=== PATIENT | female | born 1955 | race Caucasian/White ===

== ENCOUNTER 2020-03-04 07:41 | Outpatient (CLI) | payer MEDICARE, SELFPAY ==
[2020-03-06 02:14] LABS: COVID-19 RT-PCR Result NEGATIVE (Negative)
== END 2020-03-04 08:01 ==
PROVIDERS: PCP Internal Medicine; Visit Provider Podiatrist
DX: Z11.59 Encounter for screening for other viral diseases (principal); Z01.818 Encounter for other preprocedural examination
CPT/HCPCS: U0003

== ENCOUNTER 2020-03-07 10:57 | Inpatient (IN) | payer MEDICARE, SELFPAY ==
--- NOTE | 2020-03-05 14:11 | CMPROGNOTE_ITS ---
- If Service Date Differs Date of service: 03/05/20 Time of Service: 14:11 Care Management Progress Note S/O: Jeanne will be admitted status post surgery on the 07 of March. CM spoke to [facility] at [facility] who has sent referral to [facility] in [place]. According to Sierra Tran the Coordinator patient has been accepted to facility and they will have a bed for her status post surgery after her qualified hospital stay. P: Jeanne will be discharged to [facility] when she is discharged from the hospital. Transportation to be determined.
[2020-03-07 06:27] VITALS: BP 129/83; PULSE 78; RESP 16; TEMP 36.8; O2SAT 97
[2020-03-07] MEDS: Lactated Ringers 1,000 ML 80 ML IV (07:06)
--- NOTE | 2020-03-07 07:18 | HPE_ITS ---
Date of service: 03/07/20 Time of Service: 07:19 History of Present Illness History of Present Illness Chief Complaint: left foot derangement with chronic pain [facility] Medical History Abnormal gait Angioedema Pt. denies this Carpal tunnel syndrome Cervical spondylosis with radiculopathy Closed traumatic dislocation of metatarsal joint Complex regional pain syndrome Depressive disorder GERD (gastroesophageal reflux disease) Hyperlipemia Hypertension Hypokalemia Hypothyroidism Impetigo Tremor Surgical History H/O sinus surgery History of back surgery Hx of colonoscopy Social History Smoking/Tobacco Use Status: Never Alcohol Intake: current Alcohol Intake frequency: a few times a month Alcohol type: wine Drug use: Never Substance use type: does not use Do you feel safe at home: Yes Additional Social history: lives alone Meds Home Medications and Allergies Home Medications Medication Instructions Recorded Confirmed Type albuterol sulfate 2 puff INHALATION Q4H PRN 03/05/20 03/05/20 History amlodipine 10 mg PO DAILY 03/05/20 03/07/20 History buspirone 7.5 mg PO BID 03/05/20 03/05/20 History buspirone 15 mg PO TID PRN 03/05/20 03/05/20 History citalopram 10 mg PO DAILY 03/05/20 03/07/20 History cyclobenzaprine 5 mg PO TID 03/05/20 03/07/20 History diazepam 5 mg PO TID PRN 03/05/20 03/07/20 History duloxetine 60 mg PO BID 03/05/20 03/07/20 History gemfibrozil 600 mg PO BID 03/05/20 03/07/20 History hydrochlorothiazide 25 mg PO DAILY 03/05/20 03/07/20 History levothyroxine 25 mcg PO DAILY 03/05/20 03/07/20 History levothyroxine 88 mcg PO DAILY 03/05/20 03/07/20 History lisinopril 5 mg PO DAILY 03/05/20 03/07/20 History omeprazole 40 mg PO DAILY 03/05/20 03/07/20 History pregabalin 200 mg PO BID 03/05/20 03/07/20 History simvastatin 20 mg PO DAILY 03/05/20 03/07/20 History Allergies Allergy/AdvReac Type Severity Reaction Status Date / Time lamotrigine [From Lamictal] Allergy Intermediate Itching Unverified 03/07/20 06:19 amoxicillin [From Augmentin] Allergy Mild Skin Rash Unverified 03/07/20 06:19 clavulanic acid Allergy Mild Skin Rash Unverified 03/07/20 06:19 [From Augmentin] moxifloxacin [From Avelox] Allergy Mild Hives Unverified 03/07/20 06:19 Exam Narrative Exam Narrative: 64-year-old female with chronic pain associated with gross deformity of the left foot. Pain is experienced with weightbearing and shoe gear. Head is normocephalic Eyes PERRLA Hearing is adequate Uvula was midline Heart had regular rate and rhythm without gallops rubs or murmurs noted Lung tate were clear Abdomen is soft and nontender bowel sounds appreciated x 4 Peripheral pulses are palpable at the ankles graded -2/4 bilaterally. Capillary refills on the 3 seconds to all toes. No edema. Calves are soft to palpation. Muscle groups is 5 out of 5 bilaterally Medical exam is remarkable for gross deformity of the left foot with senile HAV deformity, hammertoe deformities 2 through 5 with subluxations and dislocations through the metatarsal phalangeal joints. Plantar prominence of the metatarsal heads are noted. There is generalized pain to even gentle palpation of the forefoot structures. Neurologically she appears to be grossly intact. Impression: Senile left HAV deformity Dislocation at the metatarsophalangeal joints 2 through 5 with hammertoe deformities Plan: Jeanne is being brought to the OR for salvage procedure of the left foot. We discussed a Montoya Chano type procedure emphasizing the physical alterations that will occur in the foot including shortening of the foot itself, floating of the toes. Goal of surgery is to produce a plantigrade foot with less pain with weightbearing. Risk and complications including pain, scarring, infection, reactivation of CRPS, persistent foot pain and deformity of the digits discussed. No promises made final outcome of surgery. Informed consents been obtained. Results Last Vital Signs Temp 36.8 C 03/07/20 06:27 Pulse 78 03/07/20 06:27 Resp 16 03/07/20 06:27 BP 129/83 03/07/20 06:27 Pulse Ox 97 03/07/20 06:27 COVID-19 Screening Have you,or household,traveled outside [place] in last 14 days?: No Had IN PERSON contact w/suspected or confirmed C-19 person: No
[2020-03-07] MEDS: CLINDAMYCIN 600 MG/50 ML BAG 100 MG IVPB (07:37)
[2020-03-07] MEDS: Lidocaine 1% Multi-Dose 50 ML VIAL (07:55)
[2020-03-07] MEDS: Bupivacaine 0.5% Pres-Free 30 ML VIAL (07:55)
[2020-03-07] MEDS: Dexamethasone 4 MG/ML VIAL (09:44)
--- NOTE | 2020-03-07 10:15 | W.PM.DSUDISC ---
Discharge Plan Disposition Patient Disposition: [facility] INPATIENT Condition: Good Discharge Details Reason For Visit: reconstruction left foot Attending Provider: Yo Osborn Primary Care Provider: Demetrio Vizcaino Home Meds and New Rx's Prescriptions: Continued citalopram 10 mg tablet 10 mg PO DAILY RF: 0 omeprazole 40 mg capsule,delayed release(DR/EC) 40 mg PO DAILY RF: 0 levothyroxine 25 mcg tablet 25 mcg PO DAILY RF: 0 levothyroxine 88 mcg tablet 88 mcg PO DAILY RF: 0 amlodipine 10 mg tablet 10 mg PO DAILY RF: 0 gemfibrozil 600 mg tablet 600 mg PO BID RF: 0 simvastatin 20 mg tablet 20 mg PO DAILY RF: 0 buspirone 7.5 mg tablet 7.5 mg PO BID RF: 0 lisinopril 5 mg tablet 5 mg PO DAILY RF: 0 hydrochlorothiazide 25 mg tablet 25 mg PO DAILY RF: 0 albuterol sulfate 90 mcg/actuation HFA aerosol inhaler 2 puff INHALATION Q4H PRNRF: 0 diazepam 5 mg tablet 5 mg PO TID PRNRF: 0 buspirone 15 mg tablet 15 mg PO TID PRNRF: 0 cyclobenzaprine 5 mg tablet 5 mg PO TID RF: 0 duloxetine 60 mg capsule,delayed release(DR/EC) 60 mg PO BID RF: 0 pregabalin 200 mg capsule 200 mg PO BID RF: 0 Discharge Instructions Activity:: Elevate Remove Dressings/Wound Care:: Do Not Remove Shower/Bathe:: Cover Diet:: Normal Diet Discharge Orders Discharge Orders: Discharge Order (Routine); Ordered 03/07/20 Ordered By: Yo Osborn DS: Diagnosis Discharge Diagnosis (1) Hallux valgus (acquired), left foot: Status: Acute
--- NOTE | 2020-03-07 10:18 | ROE_ITS ---
Date of service: 03/07/20 Time of Service: 10:18 Operative Note Operative Note DATE OF PROCEDURE: 03/07/20 PRE-OP DIAGNOSIS: Senile left HAV deformity, dislocations metatarsal phalangeal joints 2, 3, 4 subluxation fifth MPJ POST-OP DIAGNOSIS: same PROCEDURE: Montoya Chano type procedure with external K wire fixations left foot ANESTHESIA: GETA ESTIMATED BLOOD LOSS: 3 PATHOLOGY: none sent TOURNIQUET TIME: 122 COMPLICATIONS: None Patient was transported to: floor Implants: Steinmann pin through the great toe, Sade wires through digits 2 3 and 4 all to the left foot Indications: 64-year-old female who sustained a traumatic event to the left foot with multiple fractures subsequent gross deformity progressive in nature now making it impossible to wear shoes bear weight and ambulate. She is opting for surgical intervention in an effort to reshape the foot to allow her easier shoe gear utilization and a plantigrade foot for pain-free weightbearing. She does understand potential risk and complications pertaining to pain, scarring, infection, shortening of the foot, chronic swelling of the lesser toes, CRPS, progressive deformation over time with recurrent bunion and hammertoe deformities potentially requiring revisional procedures. Informed consents been obtained no promises made to the final outcome of surgery. Procedure Description: Jeanne was brought to the operative suite placed in the supine position with the left foot was prepped and draped in the usual sterile podiatric fashion. Timeout was performed. Anesthesia was obtained through general IV anesthesia and a local left ankle block utilizing 30 cc 50-50 mixture 1% lidocaine plain 0.5% Marcaine plain. Attention was directed to the left foot which was exsanguinated and a well-padded ankle tourniquet inflated 250 mmHg incisions were placed dorsally over the first MPJs parallel and medial to the EHL tendon, over the second intermetatarsal space and over the fourth intermetatarsal space. The incision over the second intermetatarsal space was deepened with a #15 scalpel extensive scarring was appreciated tissue planes were difficult to recreate nevertheless dissection was carried down to the second and third metatarsal phalangeal joints. Dislocation at this level was appreciated with the proximal phalanges laterally displaced from the joint. The joint capsule over the second MPJ was incised a McGlamry metatarsal elevator was inserted and the second metatarsal head delivered into the wound. Significant osteoarthritic degenerated cartilaginous findings were appreciated the second metatarsal head was resected with power equipment at its anatomic neck all rough and bony edges were rasped smooth. The same procedure was then performed at the third MPJ with the third metatarsal head being significantly deranged it too was resected at its anatomic neck. All rough and bony edges were rasped smooth. The bases of the proximal phalanges 2 and 3 were then resected with power instrumentation. The contracture of these toes which was noted preoperatively relaxed upon this maneuver and the PIPJ's were flexible. Attention was now directed to the fourth intermetatarsal space where sharp and blunt dissection was performed carrying down to the fourth and fifth metatarsal phalangeal joints. Once again anatomic planes were significantly abnormal due to previous surgical intervention and trauma. Hemostasis was acquired with electrocautery. Dissection was carried down to the fourth metatarsal phalangeal joint which was incised dorsally McGlamry metatarsal elevator was then inserted down through the joint and the fourth metatarsal delivered into the wound. Significant degenerative change of the articular surface noted. With power instrumentation the head and base were resected with all rough rough and bony edges being rasped smooth. Attention was directed laterally where the fifth MPJ was now incised McGlamry metatarsal elevator inserted and the fifth metatarsal delivered into the wound this was significantly degenerated as well. The head fifth metatarsal head was resected with angulation proximal lateral to distal medial all rough and bony edges were then rare smooth. At this juncture toes 234 and 5 with sitting in a relaxed position. Attention was now directed to the first MPJ where that incision was deepened in controlled depth fashion hemostasis being acquired with electrocautery. Dissection was carried down to the joint capsule the joint capsule was incised via a inverted L capsulotomy. The head of the first metatarsal and base of the proximal phalanx was then resected with power instrumentation. When the head was resected it was angled so it was proximal medial to distal lateral. All rough and bony edges were rasped smooth as needed. Hemostasis acquired with electrocautery. Good correction of the deformity was appreciated in the first MPJ hallux was relaxed. Stabilization?fixation was obtained using a Steinmann pin through the great toe going back into the first metatarsal keeping the hallux rectus. 0.062 K wires were then utilized to stabilize toes 2 3 and 4 going across the MPJs into the metatarsals. Good position of all toes was appreciated. Copious irrigation with normal saline was performed of all incisions. The deep layers were r epaired with simple interrupted suture 3-0 Vicryl joint capsule was repaired with medial capsulorrhaphy being utilized to the first MPJ region and closed with 3-0 Vicryl. Subcutaneous layer was repaired with 4-0 Vicryl. Skin was coapted with a combination of continuous interlocking suture of 4-0 nylon in simple interrupted suture as needed. 4 mg dexamethasone phosphate was infused primarily around the first MPJ incision. Betadine ointment applied to the K wires and Steinmann pin Xeroform to the incisions gauze fluff compression dressings were applied. Tourniquet was released at 122 with vascularity returning immediately to all toes. Sharp and sponge counts were correct x2. Jeanne left the OR with vital signs stable vascular status intact she will remain in-house for pain control with anticipated placement short-term care while she recuperates
--- NOTE | 2020-03-07 12:34 | HPE_ITS ---
Date of service: 03/07/20 Time of Service: 12:34 Assessment and Plan Assessment and plan (1) Hallux valgus (acquired), left foot: Start date: 03/07/20 Start time: 12:46 Status: Acute Assessment and plan: Surgery with Dr. Irena Madden type procedure with external K wire fixations left foot today. Incision in drsg. c/d/i with surgical shoe in place. Dr. Osborn will follow Pain management with percocet and morphine prn. PT/OT, she will likely need rehab from discharge. (2) GERD (gastroesophageal reflux disease): Start date: 03/07/20 Start time: 12:53 Status: Chronic Assessment and plan: Continue omeprazole Qualifiers: Esophagitis presence: without esophagitis Qualified Code(s): K21.9 - Gastro-esophageal reflux disease without esophagitis (3) Hypothyroidism: Start date: 03/07/20 Start time: 12:53 Status: Chronic Assessment and plan: Continue levothyroxine Qualifiers: Hypothyroidism type: unspecified Qualified Code(s): E03.9 - Hypothyroidism, unspecified (4) Hypertension: Start date: 03/07/20 Start time: 12:53 Status: Chronic Assessment and plan: Will monitor and continue amlodipine, HTcz, SELENA Qualifiers: Hypertension type: essential hypertension Qualified Code(s): I10 - Essential (primary) hypertension (5) Hyperlipemia: Start date: 03/07/20 Start time: 12:54 Status: Acute Assessment and plan: Continue simvastatin Qualifiers: Hyperlipidemia type: unspecified Qualified Code(s): E78.5 - Hyperlipidemia, unspecified (6) Discharge planning issues: Start date: 03/07/20 Start time: 12:55 Status: Acute Assessment and plan: Will likely need Rehab on discharge. CM to make arrangements (7) DVT prophylaxis: Start date: 03/07/20 Start time: 13:00 Status: Acute Assessment and plan: Will start enoxaparin tomorrow. Above case discussed with Dr. Gary who is in agreement. History of Present Illness History of Present Illness Chief Complaint: Ambulatory dysfunction, Pain management Narrative: 64 y.o with PMH of HLD, HTN, hypothyroid admitted from Dr. Farias service following surgical procedure Jan Madden with external K wire fixations left foot. We have been asked to admit for follow up of medical problems, pain management and rehab placement. Ms. Walden is having pain 8 out of 10. She is unable to care for her self at home and unable to move around. Morphine IV for severe pain with percocet for moderate pain. Foot is wrapped wit h surgical shoe in place. PT/OT with rehab when available. Review of Systems All systems reviewed & are unremarkable except as noted in HPI and below PFSH Medical History (Updated 03/07/20 @ 12:55 by Morena Rolle NP) Abnormal gait Angioedema Pt. denies this Carpal tunnel syndrome Cervical spondylosis with radiculopathy Closed traumatic dislocation of metatarsal joint Complex regional pain syndrome Depressive disorder GERD (gastroesophageal reflux disease) Hyperlipemia Hypertension Hypokalemia Hypothyroidism Impetigo Tremor Surgical History H/O sinus surgery History of back surgery Hx of colonoscopy Social History Smoking/Tobacco Use Status: Never Alcohol Intake: current Alcohol Intake frequency: a few times a month Alcohol type: wine Drug use: Never Substance use type: does not use Do you feel safe at home: Yes Additional Social history: lives alone Meds Home Medications and Allergies Home Medications Medication Instructions Recorded Confirmed Type albuterol sulfate 2 puff INHALATION Q4H PRN 03/05/20 03/05/20 History amlodipine 10 mg PO DAILY 03/05/20 03/07/20 History buspirone 7.5 mg PO BID 03/05/20 03/05/20 History buspirone 15 mg PO TID PRN 03/05/20 03/05/20 History citalopram 10 mg PO DAILY 03/05/20 03/07/20 History cyclobenzaprine 5 mg PO TID PRN PRN 03/05/20 03/07/20 History diazepam 5 mg PO BID 03/05/20 03/07/20 History duloxetine 60 mg PO BID 03/05/20 03/07/20 History gemfibrozil 600 mg PO BID 03/05/20 03/07/20 History hydrochlorothiazide 25 mg PO DAILY 03/05/20 03/07/20 History levothyroxine 25 mcg PO DAILY 03/05/20 03/07/20 History levothyroxine 88 mcg PO DAILY 03/05/20 03/07/20 History lisinopril 5 mg PO DAILY 03/05/20 03/07/20 History omeprazole 40 mg PO DAILY 03/05/20 03/07/20 History pregabalin 200 mg PO BID 03/05/20 03/07/20 History simvastatin 20 mg PO DAILY 03/05/20 03/07/20 History Allergies Allergy/AdvReac Type Severity Reaction Status Date / Time lamotrigine [From Lamictal] Allergy Intermediate Itching Unverified 03/07/20 06:19 amoxicillin [From Augmentin] Allergy Mild Skin Rash Unverified 03/07/20 06:19 clavulanic acid Allergy Mild Skin Rash Unverified 03/07/20 06:19 [From Augmentin] moxifloxacin [From Avelox] Allergy Mild Hives Unverified 03/07/20 06:19 Exam Const General: cooperative, healthy appearing, comfortable and no acute distress Nutritional Appearance: well nourished and overweight Orientation: alert, awake and oriented x3 HENMT Head: normal to inspection, normocephalic and atraumatic Face and sinus: normal facial exam Mouth: oral mucosae normal Eyes General: appearance normal, both eyes and all related structures Sclera: sclerae normal Cornea: corneas normal Pupils: PERRL EOM: EOM intact bilaterally Neck Neck: normal visual inspection, full ROM and no lymphadenopathy Lymphatic: no lymphadenopathy noted Chest Chest: normal inspection of the chest Resp Effort & Inspection: normal respiratory effort and able to speak in complete sentences Auscultation: clear to auscultation bilaterally Cardio Jugular venous pressure: no JVD Rate: regular rate Rhythm: regular rhythm Heart Sounds: S1 normal and S2 normal GI Inspection: normal to inspection Palpation: soft and no hepatosplenomegaly Auscultation: normal bowel sounds General: deferred Back/Spine/Pelvis Back: no CVA tenderness Skin General skin exam: no rashes or lesions noted Wounds: wounds noted (unable to visualize wound, in drsg, c/d/i with surgical shoe in place) Neuro General: patient alert, patient awake and patient oriented x3 Extrem General: normal to inspection and full ROM Left lower extremity: foot (surgical drsg) Details: no edema Results Last Vital Signs Temp 36.8 C 10/23/20 06:27 Pulse 78 03/07/20 06:27 Resp 16 03/07/20 06:27 BP 129/83 03/07/20 06:27 Pulse Ox 97 03/07/20 06:27 COVID-19 Screening Have you,or household,traveled outside [place] in last 14 days?: No Had IN PERSON contact w/suspected or confirmed C-19 person: No
[2020-03-07 13:19] VITALS: BP 152/95; PULSE 78; RESP 15; TEMP 37.1; O2SAT 95
[2020-03-07] MEDS: oxyCODONE 5 mg/Acetaminophen 325 mg TAB 1 TAB PO ×2 (13:38→20:04)
--- NOTE | 2020-03-07 15:56 | IN_ITS ---
Date of service: 03/07/20 Time of Service: 15:56 PT Notes Visit Reasons: AMBULATORY DYSFUNCTION Physical Therapy Inpatient Initial Evaluation Date: 03/07/2020 Referring Doctor: Morena Rolle NP PT Orders: PT CONSULT: Eval/Treat. Precautions: Fall. Standard. Post-op shoe on the right side and regular sneaker on the left side when out of bed. Weight bearing as tolerated on the R LE. Patient Profile/Admitting Diagnosis: Jeanne is a 64-year-old female with senile left hallux abducto valgus deformity, 2nd/3rd/4th MTP dislocation, and 5th MTP subluxation status post Montoya Chano type procedure with external K wire fixation of the left foot on postoperative day 0. PMHX: Medical History (Updated 03/07/20 @ 12:55 by Morena Rolle NP) Abnormal gait Angioedema Pt. denies this Carpal tunnel syndrome Cervical spondylosis with radiculopathy Closed traumatic dislocation of metatarsal joint Complex regional pain syndrome Depressive disorder GERD (gastroesophageal reflux disease) Hyperlipemia Hypertension Hypokalemia Hypothyroidism Impetigo Tremor Surgical History H/O sinus surgery History of back surgery Hx of colonoscopy Social History/Home Situation: Lives alone in an apartment with a ramp to enter. Has 3 dogs. 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 Independent with all ADLs using a SPC. Has had several falls in the past 12 months. Niece and friend help her out with grocery shopping and medical transportation. Equipment Owned/DME: Wheelchair, FWW, SPC Subjective: Reports 8-9/10 pain in the R ankle and foot with weight bearing. States that she has had tremors for a long time now and has fallen several times in the past year. Objective: General Observation: Post op shoe on R. IV in L UE. Intentional tremors to B UE. Mental Status: Alert and oriented x 4 Pain: 8-9/10 pain in R ankle and foot ROM: Right Upper Extremity: Shoulder Flexion WFL. Shoulder abduction WFL. Elbow flexion WFL. Wrist flexion WFL. Opening and closing of hand WFL. Left Upper Extremity: Shoulder Flexion WFL. Shoulder abduction WFL. Elbow flexion WFL. Wrist flexion WFL. Opening and closing of hand WFL. Right Lower Extremity: Hip flexion WFL. Hip abduction WFL. Knee flexion WFL. Ankle dorsiflexion WFL. Ankle plantarflexion WFL. Left Lower Extremity: Hip flexion WFL. Hip abduction WFL. Knee flexion WFL. Ankle dorsiflexion WFL. Ankle plantarflexion WFL. Strength: Right Upper Extremity: Shoulder flexors 4-/5. Shoulder abductors 4-/5. Elbow flexors 4-/5. Elbow extensors 4-/5. Cotton Picking Machine Operator strong. Left Upper Extremity: Shoulder flexors 4-/5. Shoulder abductors 4-/5. Elbow flexors 4-/5. Elbow extensors 4-/5. Cotton Picking Machine Operator strong. Right Lower Extremity: Hip flexors 3+/5. Hip abductors 3+/5. Knee flexors 4-/5. Knee extensors 3+/5. Ankle dorsiflexors 3+/5. Ankle plantarflexors 3+/5. Left Lower Extremity:Hip flexors 3+/5. Hip abductors 3+/5. Knee flexors 4-/5. Knee extensors 3+/5. Ankle dorsiflexors 3+/5. Ankle plantarflexors 3+/5. Sensation: Intact as to pain and pressure on bilateral lower extremities. Bed Mobility/Transfers: Rolling SBA Supine to sit SBA with HOB at 30 degrees Sit to supine SBA Sit to stand CGA Stand to sit CGA Bed to chair CGA Gait: 40 feet with FWW requiring CGA with WBAT on L LE and sneaker on R. 8-9/10 with WB. No heelstrike on L Jeanne requires a walker for increased stability. Decreased beka. Balance: Static Sitting: Normal Dynamic Sitting: Normal fair Static Standing: Dynamic Standing: Fair Special Tests: Mobility Limitations Standardized Measure [facility] AM-PAC 6 clicks Basic Mobility Inpatient Short Form: Raw Score: 18 CMS Score: 47% deficit Informed Consent/Education: Patient instructed in purpose of PT consult and plan of care. THERA ACT: Patient was instructed on safe strategies during transfers and ambulation using FWW with emphasis given on using a sneaker on the non-operated side to equalize leg length and minimize pain level during mobility ADL performance. A padding made of comprifoam placed inside an elastic netting gauzed was placed over dorsum of forefoot and toes to minimize pressure and reduce pain. Assessment: Jeanne demonstrates functional mobility decline requiring the use of a front wheeled walker for all mobility ADL performance, generalized weakness, intentional tremor, difficulty with walking, and impairment in balance due to admitting diagnoses and postoperative status. Jeanne is a 64-year-old female with senile left hallux abducto valgus deformity, 2nd/3rd/4th MTP dislocation, and 5th MTP subluxation status post Montoya Chano type procedure with external K wire fixation of the left foot on postoperative day 0. She will require skilled services in order to mitigate underlying impairments and functional deficits listed below. Without PT services patient is at risk for further functional mobility decline, increased fall risk, and inability to return home alone. Patient presents with clinical signs and symptoms consistent with current/admitting diagnoses that have resulted to mobility limitations, gait instability, generalized weakness, and impairment of motor control as demonst rated by the following impairment level findings: 1. Decreased strength to right ankle major muscle groups 2. Impaired sitting/standing balance 3. Impaired activity tolerance 4. Limitation of joint range of motion in right ankle 5. Chronic intention tremors Impairments are contributing to the following functional limitations: 1. Increased dependence with transfers 2. Inability to safely ambulate without assistive device and physical assistance 3. Increase completion time for mobility ADL performance 4. Increased fall risk 5. Inability to negotiate steps alone safely Patient is assessed as a 38761 moderate complexity based on the following: History: 64-year-old female [id number] moderate with impairment level findings, functional limitations, and past medical history as indicated above Examination: Demonstrable impairment in strength, balance, and mobility level with underlying impairments and functional limitations as documented above Presentation:Evolving Decision Makin moderate complexity Goals: Goals X1 week 1. Supine-Sit independent 2. Sit-Supine independent 3. Sit-Stand independent 4. Stand-Sit independent 5. Bed-Chair independent 6. Chair-Bed independent 7. Independent gait on level surface with use of least restrictive device for at least 300 feet without report of pain nor dyspnea 8. Independent with home exercise program 9. Good static and dynamic standing balance/tolerance Plan of Care/Treatment Plan: 1-2x/day, 7 days/week x 1 week. Plan of care has been reviewed with the ENVELOPE SEALER providing the service under Physical Therapy direction. Initiate Physical Therapy intervention for strengthening, bed mobility, transfers, gait, stairs, balance training, use of assistive device. DISCHARGE RECOMMENDATIONS: Patient will benefit from prison facility placement for continued skilled physical therapy services in order to progress mobility level, strength, and balance in preparation for a safe discharge to home. TREATMENT CODE/TIME: 45641 x 20 minutes, 82694 x 24 minutes beginning at 15:56 PM. Thank you for the opportunity to participate in the care of this patient. Karon Srinivasan PT, DPT, CLT [facility] [place], [place]
[2020-03-07] MEDS: DULoxetine 30 MG CAP 60 MG PO (20:03)
[2020-03-07] MEDS: Pregabalin 100 MG CAP 200 MG PO (20:04)
[2020-03-07] MEDS: Simvastatin 20 MG TAB PO (20:04)
[2020-03-07 23:05] VITALS: BP 168/98; PULSE 82; RESP 18; TEMP 36.1; O2SAT 96
[2020-03-07] MEDS: MORPHine 2 MG/ML SYR IVP (23:53)
[2020-03-07] MEDS: Normal Saline Flush 10 ML SYR IVP (23:53)
[2020-03-08] MEDS: oxyCODONE 5 mg/Acetaminophen 325 mg TAB 1 TAB PO ×6 (02:57→21:58)
[2020-03-08] MEDS: MORPHine 2 MG/ML SYR IVP (05:13)
[2020-03-08] MEDS: Levothyroxine 25 MCG TAB PO (05:13)
[2020-03-08] MEDS: Levothyroxine 88 MCG TAB PO (05:13)
[2020-03-08] MEDS: Normal Saline Flush 10 ML SYR IVP ×2 (05:14→07:52)
[2020-03-08 07:31] LABS: Abs Immature Grans 0.03 10^3/uL (0.0-0.06); Absolute Basophil Count 0.02 10^3/uL (0.0-0.2); Absolute Eosinophil Count 0.04 10^3/uL (0.0-0.7); Absolute Monocyte Count 1.11 10^3/uL (0.1-0.8); Absolute Neutrophil Count 8.96 10^3/uL (1.2-6.7); Basophils % 0.2; Eosinophils % 0.3; HCT 34.3 % (36.0-46.0); HGB 11.6 g/dL (11.2-15.7); Immature Grans % 0.3; Lymphocytes % 13.6; MCH 28.9 pg (27.0-33.0); MCHC 33.8 % (32.0-36.0); MCV 85.3 fL (80-95); MPV 10.7 fL (8.0-11.0); Monocytes % 9.4; Neutrophils % 76.2; Nucleated RBC 0 %; Platelet Count 262 10^3/uL (130-400); RBC 4.02 10^6/uL (3.93-5.22); RDW 13.4 % (11.7-14.6); RDW-SD 41.8 fL; WBC 11.76 10^3/uL (4.4-10.8)
[2020-03-08 07:37] LABS: Anion Gap 10.7 mmol/L (3-11); BUN 19 mg/dL (7-18); CO2 24.3 mmol/L (21.0-32.0); CREATININE 0.72 mg/dL (0.55-1.02); Calcium 9.2 mg/dL (8.5-10.1); Chloride 99 mmol/L (98-107); Glucose 108 mg/dL (74-106); Potassium 3.2 mmol/L (3.5-5.1); Sodium 134 mmol/L (136-145)
[2020-03-08 07:45] VITALS: BP 159/105; PULSE 84; RESP 14; TEMP 36.4; O2SAT 98
[2020-03-08] MEDS: DULoxetine 30 MG CAP 60 MG PO ×2 (07:50→19:55)
[2020-03-08] MEDS: Lisinopril 5 MG TAB PO (07:51)
[2020-03-08] MEDS: Omeprazole 20 MG CAPCR 40 MG PO (07:51)
[2020-03-08] MEDS: Pregabalin 100 MG CAP 200 MG PO ×2 (07:51→19:55)
[2020-03-08] MEDS: Omega-3 Fatty Acids 1000 MG CAP 3000 MG PO (07:51)
[2020-03-08] MEDS: amLODIPine 10 MG TAB PO (07:52)
[2020-03-08] MEDS: hydroCHLOROthiazide 25 MG TAB PO (07:52)
[2020-03-08] MEDS: Enoxaparin 40 MG/0.4 ML SYR SC (09:48)
[2020-03-08] MEDS: Potassium Chloride 20 MEQ TABCR 40 MEQ PO (09:49)
[2020-03-08] MEDS: POTASSIUM CHLORIDE 10 MEQ/100 ML BAG 100 MEQ IVPB ×2 (09:49→10:56)
--- NOTE | 2020-03-08 10:31 | W.PM.PROGNOT ---
Date of Service Date of service: 03/08/20 Time of Service: 10:31 Subjective Subjective Interval history since last seen: Jeanne is seen at bedside. She had some intermittent pain overnight which is being well controlled with opiates. She is resting comfortably at the moment. Exam Narrative Exam Narrative: Dressings were reinforced overnight by the nursing staff. Dressings were removed and some bloody drainage was appreciated. No active bleeding currently noted. The foot has moderate edema as would be expected but the incisions are clean and dry, calf soft to palpation. She has good capillary return on all toes. The foot is warm to the touch. Impression: 24 hours status post Montoya Chano type procedure on the left foot Plan: Povidone iodine was applied to the incisions and K wires. Gauze fluff, Kerlix rolls and flex net, Rafa wrap reapplied. She may weight-bear in the surgical shoe as tolerated but I do encourage her to keep the foot elevated when not ambulating. I believe she will be transferred on Tuesday after recuperation. I would like to see her in the office postop day 10 or 11 for dressing change and suture removal. I discussed the case with the hospitalist. Objective Last Vital Signs Temp 36.1 C L 03/07/20 23:05 Pulse 82 03/07/20 23:05 Resp 18 03/07/20 23:05 BP 168/98 H 03/07/20 23:05 Pulse Ox 96 03/07/20 23:05 Laboratory Results - last 24 hr 03/08/20 03/08/20 07:08 07:08 WBC 11.76 H RBC 4.02 Hgb 11.6 Hct 34.3 L MCV 85.3 MCH 28.9 MCHC 33.8 RDW 13.4 Plt Count 262 MPV 10.7 Immature Gran % 0.3 Neutrophils % 76.2 Lymphocytes % 13.6 Monocytes % 9.4 Eosinophils % 0.3 Basophils % 0.2 Nucleated RBC % 0 Absolute Neutrophils 8.96 H Absolute Lymphocytes 1.60 Absolute Monocytes 1.11 H Absolute Eosinophils 0.04 Absolute Basophils 0.02 Sodium 134 L Potassium 3.2 L Chloride 99 Carbon Dioxide 24.3 Anion Gap 10.7 BUN 19 H Creatinine 0.72 Estimated GFR/1.73 m2 >= 60.00 Glucose 108 H Calcium 9.2
--- NOTE | 2020-03-08 11:06 | W.PM.PROGNOT ---
Date of Service Date of service: 03/08/20 Time of Service: 11:06 Assessment and Plan Assessment and plan (1) Hallux valgus (acquired), left foot: Start date: 03/08/20 Start time: 11:32 Status: Acute Assessment and plan: Surgery POD 1, with Dr. Irena Montoya Chano type procedure with external K wire fixations left foot today. Incision drsg. c/d/i with surgical shoe in place. Dr. Osborn will follow changed dressing today Pain management with percocet and morphine prn. PT/OT, she been accepte by [facility]. (2) GERD (gastroesophageal reflux disease): Start date: 03/08/20 Start time: 11:34 Status: Chronic Assessment and plan: Continue omeprazole Qualifiers: Esophagitis presence: without esophagitis Qualified Code(s): K21.9 - Gastro-esophageal reflux disease without esophagitis (3) Hypothyroidism: Start date: 03/08/20 Start time: 11:34 Status: Chronic Assessment and plan: Continue levothyroxine Qualifiers: Hypothyroidism type: unspecified Qualified Code(s): E03.9 - Hypothyroidism, unspecified (4) Hypertension: Start date: 03/08/20 Start time: 11:38 Status: Chronic Assessment and plan: Will monitor and continue amlodipine, HTcz, SELENA Qualifiers: Hypertension type: essential hypertension Qualified Code(s): I10 - Essential (primary) hypertension (5) Hyperlipemia: Start date: 03/08/20 Start time: 11:38 Status: Acute Assessment and plan: Continue simvastatin Qualifiers: Hyperlipidemia type: unspecified Qualified Code(s): E78.5 - Hyperlipidemia, unspecified (6) Discharge planning issues: Start date: 03/08/20 Start time: 11:38 Status: Acute Assessment and plan: Will need Rehab on discharge. CM to make arrangements (7) DVT prophylaxis: Start date: 03/08/20 Start time: 11:38 Status: Acute Assessment and plan: Will start enoxaparin tomorrow. Above case discussed with Dr. Gary who is in agreement. Subjective Subjective Patient reports: still having pain Interval history since last seen: POD [address] Osborn, c/o pain. Will schedule po pain medication, add ibuprofen and IV for breakthrough. Drsg intact, changed by surgeon today. Otherwise no complaints. Exam Const General: cooperative, healthy appearing, comfortable and no acute distress Nutritional Appearance: well nourished and overweight Orientation: alert, awake and oriented x3 HENMT Head: normal to inspection, normocephalic and atraumatic Face and sinus: normal facial exam Mouth: oral mucosae normal Eyes General: appearance normal, both eyes and all related structures Sclera: sclerae normal Cornea: corneas normal Pupils: PERRL EOM: EOM intact bilaterally Neck Neck: normal visual inspection, full ROM and no lymphadenopathy Lymphatic: no lymphadenopathy noted Chest Chest: normal inspection of the chest Resp Effort & Inspection: normal respiratory effort and able to speak in complete sentences Auscultation: clear to auscultation bilaterally Cardio Jugular venous pressure: no JVD Rate: regular rate Rhythm: regular rhythm Heart Sounds: S1 normal and S2 normal GI Inspection: normal to inspection Palpation: soft and no hepatosplenomegaly Auscultation: normal bowel sounds General: deferred Back/Spine/Pelvis Back: no CVA tenderness Skin General skin exam: no rashes or lesions noted Wounds: wounds noted (unable to visualize wound, in drsg, c/d/i with surgical shoe in place) Neuro General: patient alert, patient awake and patient oriented x3 Extrem General: normal to inspection and full ROM Left lower extremity: foot (surgical drsg) Details: no edema Objective Last Vital Signs Temp 36.1 C L 03/07/20 23:05 Pulse 82 03/07/20 23:05 Resp 18 03/07/20 23:05 BP 168/98 H 03/07/20 23:05 Pulse Ox 96 03/07/20 23:05 Laboratory Results - last 24 hr 03/08/20 03/08/20 07:08 07:08 WBC 11.76 H RBC 4.02 Hgb 11.6 Hct 34.3 L MCV 85.3 MCH 28.9 MCHC 33.8 RDW 13.4 Plt Count 262 MPV 10.7 Immature Gran % 0.3 Neutrophils % 76.2 Lymphocytes % 13.6 Monocytes % 9.4 Eosinophils % 0.3 Basophils % 0.2 Nucleated RBC % 0 Absolute Neutrophils 8.96 H Absolute Lymphocytes 1.60 Absolute Monocytes 1.11 H Absolute Eosinophils 0.04 Absolute Basophils 0.02 Sodium 134 L Potassium 3.2 L Chloride 99 Carbon Dioxide 24.3 Anion Gap 10.7 BUN 19 H Creatinine 0.72 Estimated GFR/1.73 m2 >= 60.00 Glucose 108 H Calcium 9.2
--- NOTE | 2020-03-08 11:22 | PT.INTREAT ---
PT Notes Visit Reasons: AMBULATORY DYSFUNCTION Inpatient Physical Therapy Treatment Note [facility] Date: 03/08/20 PRECAUTIONS:WBAT L LE Supine-sit: CGA Sit-supine: [] Sit-stand: CGA Stand-sit: CGA GAIT Assistive Device: FWW Weight bearing: WBAT L LE Assist: CGA Distance: 65ft ASSESSMENT: Pt tolerated today's session well with her ambulation and was able to ambulate better as she went farther along. She was tired after walking and did not complete any exercises due to that. PLAN: Cont as per PT POC TREATMENT CODE/TIME: 10:20-10:45 FABIAN (25)
[2020-03-08 12:00] VITALS: BP 119/86; PULSE 47; RESP 16; TEMP 36.3; O2SAT 96
--- NOTE | 2020-03-08 12:05 | PHA.REVIEW ---
Pharmacy Admission Review - Admission Clinical Review (Last Updated 03/07/20 @ 12:45 by Morena Rolle NP) DVT prophylaxis (Acute) Discharge planning issues (Acute) Hyperlipemia (Acute) Hallux valgus (acquired), left foot (Acute) lamotrigine [From Lamictal] Allergy (Intermediate, Unverified 03/07/20 06:19) Itching amoxicillin [From Augmentin] Allergy (Mild, Unverified 03/07/20 06:19) Skin Rash clavulanic acid [From Augmentin] Allergy (Mild, Unverified 03/07/20 06:19) Skin Rash moxifloxacin [From Avelox] Allergy (Mild, Unverified 03/07/20 06:19) Hives Height 5 ft 7 in Weight 83.1 kg - Renal Dosing Renal Dosing: BUN 19 mg/dL (7-18) H 03/08/20 07:08 Creatinine 0.72 mg/dL (0.55-1.02) 03/08/20 07:08 Medications needing adjustments: Reviewed (CRCL ~71ML/MIN) - Anticoagulation Anticoagulation: Hgb 11.6 g/dL (11.2-15.7) 03/08/20 07:08 Hct 34.3 % (36.0-46.0) L 03/08/20 07:08 Plt Count 262 10^3/uL (130-400) 03/08/20 07:08 Creatinine 0.72 mg/dL (0.55-1.02) 03/08/20 07:08 DVT Prohphylaxis: Reviewed Medications: Enoxaparin Therapeutic Anticoagulation: N/A - Opiate Usage Scheduled Bowel Reg ordered if on Opiates?: No (BM yesterday) - Relevant Labs Sodium 134 mmol/L (136-145) L 03/08/20 07:08 Potassium 3.2 mmol/L (3.5-5.1) L 03/08/20 07:08 Chloride 99 mmol/L (98-107) 03/08/20 07:08 - DM Control DM Control: Glucose 108 mg/dL (74-106) H 03/08/20 07:08 Insulin Dosing: N/A - BP Control If elevated: Reviewed - Home Meds Home Med List reviewed: Reviewed (No gemfibrozil ordered just simvastatin and fish oil, no citalopram) - Current meds Current Medication Order Review: Reviewed
[2020-03-08] MEDS: Ibuprofen 800 MG TAB PO ×2 (14:19→19:56)
[2020-03-08 15:50] VITALS: BP 115/52; PULSE 87; RESP 18; TEMP 35.9; O2SAT 96
--- NOTE | 2020-03-08 17:25 | PDOC.CMIN ---
- If Service Date Differs Date of service: 03/08/20 Time of Service: 17:25 Care Management Initial Assess REASON FOR HOSPITALIZATION:: Ambulatory Dysfunction PAST MEDICAL HISTORY/PAST SURGICAL HISTORY:: Medical History. Abnormal gait. Angioedema. Pt. denies this. Carpal tunnel syndrome. Cervical spondylosis with radiculopathy. Closed traumatic dislocation of metatarsal joint. Complex regional pain syndrome. Depressive disorder. GERD (gastroesophageal reflux disease). Hyperlipemia. Hypertension. Hypokalemia. Hypothyroidism. Impetigo. Tremor. Surgical History. H/O sinus surgery. History of back surgery. Hx of colonoscopy PREVIOUS FUNCTIONAL STATUS/SOCIAL/FAMILY SUPPORTS:: Jeanne lives in [place] alone. Her recently. She has three large dogs that she speaks fondly of. She has some relatives and friends that live nearby and support her when she is in need. She is independent with ADL's at baseline. CURRENT FUNCTIONAL STATUS:: Jeanne was sitting up in bed when CM met with her. She stated that she was just able to 'wash up', which has made her feel much better. She stated that her plan is to discharge to [facility] post surgically. CM stated that transportation would be arranged. CM will continue to follow. ADVANCE DIRECTIVES:: On file, Billy Walden listed as agent. Connie Walden listed as alternative agent. Has patient been provided with info about the portal/API?: No Did the patient sign up for the portal?: No CODE STATUS:: Full Code INSURANCE COVERAGE / FINANCIAL ISSUES:: MCR/ [employer] CURRENT HOME/COMMUNITY SERVICES/EQUIPMENT:: No current services. Jeanne owns a FWW, SPC and a wheelchair. PRIMARY CARE PHYSICIAN:: Demetrio Vizcaino POTENTIAL DISCHARGE NEEDS:: Transportation coordination, SNF placement (previously arranged) PATIENT/FAMILY EDUCATION NEEDS:: Review discharge instructions regarding activity levels and medications, discussion of self care needs and goals of care. ANTICIPATED BARRIERS TO DISCHARGE:: None identified at this time. TRANSPORTATION:: To be determined. PLAN:: Jeanne's PCP office has previously coordinated SNF placement for Jeanne at [facility] in [place], which is close to Jeanne's home. CM will coordinate transportation once Jeanne is stable for discharge. CM will continue to follow.
[2020-03-08] MEDS: Simvastatin 20 MG TAB PO (19:55)
[2020-03-08 23:00] VITALS: BP 135/84; PULSE 74; RESP 17; TEMP 36.5; O2SAT 95
[2020-03-09] MEDS: oxyCODONE 5 mg/Acetaminophen 325 mg TAB 1 TAB PO ×6 (02:31→22:07)
[2020-03-09] MEDS: Levothyroxine 88 MCG TAB PO (05:47)
[2020-03-09] MEDS: Levothyroxine 25 MCG TAB PO (05:47)
[2020-03-09 07:34] VITALS: BP 113/84; PULSE 80; RESP 18; TEMP 35.7; O2SAT 96
[2020-03-09] MEDS: Omega-3 Fatty Acids 1000 MG CAP 3000 MG PO (07:47)
[2020-03-09] MEDS: hydroCHLOROthiazide 25 MG TAB PO (07:47)
[2020-03-09] MEDS: Ibuprofen 800 MG TAB PO ×3 (07:47→19:52)
[2020-03-09] MEDS: DULoxetine 30 MG CAP 60 MG PO ×2 (07:48→19:51)
[2020-03-09] MEDS: Pregabalin 100 MG CAP 200 MG PO ×3 (07:48→19:51)
[2020-03-09] MEDS: Lisinopril 5 MG TAB PO (07:48)
[2020-03-09] MEDS: Omeprazole 20 MG CAPCR 40 MG PO (07:48)
[2020-03-09] MEDS: amLODIPine 10 MG TAB PO (07:48)
[2020-03-09] MEDS: Normal Saline Flush 10 ML SYR IVP (07:48)
[2020-03-09 09:17] LABS: Anion Gap 14.2 mmol/L (3-11); BUN 27 mg/dL (7-18); CO2 20.8 mmol/L (21.0-32.0); CREATININE 1.13 mg/dL (0.55-1.02); Calcium 9.1 mg/dL (8.5-10.1); Chloride 96 mmol/L (98-107); Estimated GFR 48.79 (mL/min/1.73m2); Glucose 114 mg/dL (74-106); Potassium 3.6 mmol/L (3.5-5.1); Sodium 131 mmol/L (136-145)
[2020-03-09] MEDS: Enoxaparin 40 MG/0.4 ML SYR SC (10:14)
[2020-03-09] MEDS: Citalopram 10 MG TAB PO (10:14)
--- NOTE | 2020-03-09 11:01 | W.PM.PROGNOT ---
Date of Service Date of service: 03/09/20 Time of Service: 11:01 Assessment and Plan Assessment and plan (1) Hallux valgus (acquired), left foot: Start date: 03/09/20 Start time: 11:06 Status: Acute Assessment and plan: Surgery POD 2, with Dr. Irena Madden type procedure with external K wire fixations left foot today. Incision drsg. c/d/i with surgical shoe in place. Dr. Osborn wants to see patient in 10-11 days post op Pain management with percocet a PT/OT, she been accepted by [facility]. (2) GERD (gastroesophageal reflux disease): Start date: 03/09/20 Start time: 11:07 Status: Chronic Assessment and plan: Continue omeprazole Qualifiers: Esophagitis presence: without esophagitis Qualified Code(s): K21.9 - Gastro-esophageal reflux disease without esophagitis (3) Hypothyroidism: Start date: 03/09/20 Start time: 11:07 Status: Chronic Assessment and plan: Continue levothyroxine Qualifiers: Hypothyroidism type: unspecified Qualified Code(s): E03.9 - Hypothyroidism, unspecified (4) Hypertension: Start date: 03/09/20 Start time: 11:08 Status: Chronic Assessment and plan: Will monitor and continue amlodipine, HTcz, SELENA Qualifiers: Hypertension type: essential hypertension Qualified Code(s): I10 - Essential (primary) hypertension (5) Hyperlipemia: Start date: 03/09/20 Start time: 11:08 Status: Acute Assessment and plan: Continue simvastatin Qualifiers: Hyperlipidemia type: unspecified Qualified Code(s): E78.5 - Hyperlipidemia, unspecified (6) Discharge planning issues: Start date: 03/09/20 Start time: 11:08 Status: Acute Assessment and plan: Will need Rehab on discharge. CM to make arrangements (7) DVT prophylaxis: Start date: 03/09/20 Start time: 11:08 Status: Acute Assessment and plan: On enoxaparin Above case discussed with Dr. Gary who is in agreement. Subjective Subjective Interval history since last seen: Doing well. Pain controlled. Sitting up in chair with foot elevated. She denies CP, SOB, N/V/D Exam Const General: cooperative, healthy appearing, comfortable and no acute distress Nutritional Appearance: well nourished and overweight Orientation: alert, awake and oriented x3 HENMT Head: normal to inspection, normocephalic and atraumatic Face and sinus: normal facial exam Mouth: oral mucosae normal Eyes General: appearance normal, both eyes and all related structures Sclera: sclerae normal Cornea: corneas normal Pupils: PERRL EOM: EOM intact bilaterally Neck Neck: normal visual inspection, full ROM and no lymphadenopathy Lymphatic: no lymphadenopathy noted Chest Chest: normal inspection of the chest Resp Effort & Inspection: normal respiratory effort and able to speak in complete sentences Auscultation: clear to auscultation bilaterally Cardio Jugular venous pressure: no JVD Rate: regular rate Rhythm: regular rhythm Heart Sounds: S1 normal and S2 normal GI Inspection: normal to inspection Palpation: soft and no hepatosplenomegaly Auscultation: normal bowel sounds General: deferred Back/Spine/Pelvis Back: no CVA tenderness Skin General skin exam: no rashes or lesions noted Wounds: wounds noted (unable to visualize wound, in drsg, c/d/i with surgical shoe in place) Neuro General: patient alert, patient awake and patient oriented x3 Extrem General: normal to inspection and full ROM Left lower extremity: foot (surgical drsg) Details: no edema Objective Last Vital Signs Temp 35.7 C L 03/09/20 07:34 Pulse 80 03/09/20 07:34 Resp 18 03/09/20 07:34 BP 113/84 03/09/20 07:34 Pulse Ox 96 03/09/20 07:34 Laboratory Results - last 24 hr 03/09/20 08:40 Sodium 131 L Potassium 3.6 Chloride 96 L Carbon Dioxide 20.8 L Anion Gap 14.2 H BUN 27 H Creatinine 1.13 H Estimated GFR/1.73 m2 48.79 Glucose 114 H Calcium 9.1
--- NOTE | 2020-03-09 11:03 | PT.INTREAT ---
PT Notes Visit Reasons: AMBULATORY DYSFUNCTION Inpatient Physical Therapy Treatment Note [facility] Date: 03/09/20 PRECAUTIONS: WBAT L LE SUBJECTIVE: Pt reports that she wants to get better and is willing to work hard. OBJECTIVE: Stand-sit: CGA/SBA GAIT Assistive Device: FWW Weight bearing: WBAT L LE Assist: CGA/SBA Distance: 100ft THEREX: Pt completed LE strengthening ther ex as per flow sheet. ASSESSMENT: Pt tolerated today's session well. Pt is very willing and wants to get stronger. Pt was fatigued today just from standing to get washed up this morning before I had seen her but still did very well. PLAN: Cont as per PT POC. TREATMENT CODE/TIME: 9:30-9:50 ( 20) TA
[2020-03-09 13:30] LABS: COVID-19 RT-PCR UVMMC Result Negative (Negative)
--- NOTE | 2020-03-09 14:00 | PDOC.CMPRO ---
- If Service Date Differs Date of service: 03/09/20 Time of Service: 14:00 Care Management Progress Note S/O: Jeanne was sitting in her chair, talking on the phone when CM attempted to meet with her. Per report, her Covid test was returned with a negative result, in preparation for her placement at [facility] tomorrow. CM will coordinate transportation with [facility] in the morning. CM will continue to follow. A: Jeanne is a 64 year old female admitted to [facility] on 03/07/20 with ambulatory dysfunction. P: Jeanne's PCP office has previously coordinated SNF placement for Jeanne at [facility] in [place], which is close to Jeanne's home. CM will coordinate transportation once Jeanne is stable for discharge. She will follow up with Dr. Arguelles in about a week post discharge. CM will confirm with [facility] that she will be able to transport to this appointment. CM will continue to follow.
[2020-03-09 15:30] VITALS: BP 109/71; PULSE 91; RESP 20; TEMP 35.9; O2SAT 94
[2020-03-09] MEDS: Simvastatin 20 MG TAB PO (19:52)
[2020-03-09 23:30] VITALS: BP 118/81; PULSE 78; RESP 19; TEMP 35.9; O2SAT 94
[2020-03-10] MEDS: oxyCODONE 5 mg/Acetaminophen 325 mg TAB 1 TAB PO ×4 (02:39→13:31)
[2020-03-10] MEDS: Levothyroxine 88 MCG TAB PO (05:49)
[2020-03-10] MEDS: Levothyroxine 25 MCG TAB PO (05:49)
[2020-03-10 08:00] VITALS: BP 91/60; PULSE 94; RESP 19; TEMP 36.8; O2SAT 93
[2020-03-10] MEDS: Omeprazole 20 MG CAPCR 40 MG PO (08:00)
[2020-03-10] MEDS: DULoxetine 30 MG CAP 60 MG PO (08:01)
[2020-03-10] MEDS: Omega-3 Fatty Acids 1000 MG CAP 3000 MG PO (08:01)
[2020-03-10] MEDS: Pregabalin 100 MG CAP 200 MG PO ×2 (08:01→13:31)
[2020-03-10] MEDS: Citalopram 10 MG TAB PO (08:01)
[2020-03-10] MEDS: Ibuprofen 800 MG TAB PO ×2 (08:01→13:31)
[2020-03-10] MEDS: Enoxaparin 40 MG/0.4 ML SYR SC (09:35)
[2020-03-10 10:26] VITALS: BP 104/67; BP 120/80
--- NOTE | 2020-03-10 11:32 | PDOC.CMDIS ---
LACE Index Scoring Tool - Questions: Length of Stay (in days): 3 Acuity (Admit via E.D.?): No E.D. Visits: 0 - Answers: Total Score: 3 Risk of Readmission: Low Risk Care Management Discharge Reason for Hospitalization: Ambulatory Dysfunction Discharge Plan: Joya will discharge to [facility] in [place], which is close to Joya home. CM coordinated transportation with [facility] via private vehicle, faxed DC summary and completed necessary paperwork. Patient/Family Education Needs: Review discharge instructions, discuss Ask Me Three. Services Needed at Discharge: Penitentiary Facility ([facility]), Transportation ([facility] private vehicle )
--- NOTE | 2020-03-10 11:56 | DSE_ITS ---
Documented by User: Morena Rolle NP 03/10/20 12:34 Date of service: 03/10/20 Time of Service: 12:07 DS: Diagnosis Discharge Diagnosis (1) Hallux valgus (acquired), left foot: Start date: 03/10/20 Start time: 12:07 Status: Acute Asessment and Plan: POD [address] Osborn Montoya Chano type procedure with external K wire fixations left foot today. Incision drsg. c/d/i with surgical shoe in place. Dr. Osobrn wants to see patient in 10-11 days post op TuesdayMar 18. Will have CM set up transportion Pain management with percocet a PT/OT, she been accepted by [facility]. (2) GERD (gastroesophageal reflux disease): Start date: 03/10/20 Start time: 12:15 Status: Chronic Asessment and Plan: continue omeprazole (3) Hypothyroidism: Start date: 03/10/20 Start time: 12:15 Status: Chronic Asessment and Plan: continue levothyroxine (4) Hypertension: Start date: 03/10/20 Start time: 12:15 Status: Chronic Asessment and Plan: COntinue amlodpine, HTCZ, SELENA, controlled in the hospital (5) Hyperlipemia: Start date: 03/10/20 Start time: 12:16 Status: Acute Asessment and Plan: continue simvastatin above case discussed with Dr. Matta who is in agreement. Discharge Plan Disposition Patient Disposition: OTHER Condition: Good Discharge Details Reason For Visit: AMBULATORY DYSFUNCTION Admit Date/Time: 03/07/20 10:57 Admit Provider: Kyrie Gary Attending Provider: Kyrie Gary Primary Care Provider: Demetrio Vizcaino Hospital Course Hospital Course: 64 y.o female with PMH of hypothyroidism, HTN, HLD, depression admitted to [facility] M/S post surgery with Dr. Osborn. He performed a Montoya Chano procedure on metatarsals 1-5 to the left foot. She was admitted for pain management and rehab referral. Pain has been controlled. She has been working with PT and able to get oob to chair. Dr. Osborn wants follow up on Mar 17 or . Jess c/d/i. She is being discharged to [facility], [place] for further management. Home Meds and New Rx's Prescriptions: New ibuprofen [IBU] 800 mg Tablet 800 mg PO TID Qty: 30 RF: 0 omega 2-tmr-lqf-fish oil 1,000 mg (120 mg-180 mg) Capsule 1 cap PO DAILY Qty: 30 RF: 0 oxycodone-acetaminophen 5-325 mg Tablet 1 tab PO Q4H Qty: 20 RF: 0 Continued citalopram 10 mg tablet 10 mg PO DAILY RF: 0 omeprazole 40 mg capsule,delayed release(DR/EC) 40 mg PO DAILY RF: 0 levothyroxine 25 mcg tablet 25 mcg PO DAILY RF: 0 levothyroxine 88 mcg tablet 88 mcg PO DAILY RF: 0 amlodipine 10 mg tablet 10 mg PO DAILY RF: 0 gemfibrozil 600 mg tablet 600 mg PO BID RF: 0 simvastatin 20 mg tablet 20 mg PO DAILY RF: 0 lisinopril 5 mg tablet 5 mg PO DAILY RF: 0 hydrochlorothiazide 25 mg tablet 25 mg PO DAILY RF: 0 albuterol sulfate 90 mcg/actuation HFA aerosol inhaler 2 puff INHALATION Q4H PRNRF: 0 diazepam 5 mg tablet 5 mg PO BID PRN PRNRF: 0 cyclobenzaprine 5 mg tablet 5 mg PO TID PRN PRNRF: 0 duloxetine 60 mg capsule,delayed release(DR/EC) 60 mg PO BID RF: 0 pregabalin 200 mg capsule 200 mg PO BID Qty: 30 RF: 0 Discharge Instructions Instructions: Narcotic Safety (DC) Additional Instructions: Discharge to [place] Follow up with Dr. Osborn on Mar 17 or Take medication as directed. Stand Alone Forms: Nursing Discharge Form Referrals: Yo Osborn DPM [[facility] STAFF PHYSICIAN] - (call Dr Farias office at for follow up on March 17 or March 18) Activity:: Activity as Tolerated Equipment/Supplies:: No Equipment Needed Diet:: Normal Diet Discharge Orders Discharge Orders: Discharge Order (Routine); Ordered 03/10/20 Ordered By: Morena Rolle Discharge Data Discharge Date/Time-TO BE ENTERED AT DEPARTURE: 03/10/20 13:47 DS: Summary Status at Discharge Functional status at discharge: uses cane/walker Overall status at discharge: patient is progressing back to baseline Mental Status: mental status grossly normal Speech and Movement: speech and movement normal Mood: congruent mood Affect: normal affect Exam Const General: cooperative, healthy appearing, comfortable and no acute distress Nutritional Appearance: well nourished and overweight Orientation: alert, awake and oriented x3 HENMT Head: normal to inspection, normocephalic and atraumatic Face and sinus: normal facial exam Mouth: oral mucosae normal Eyes General: appearance normal, both eyes and all related structures Sclera: sclerae normal Cornea: corneas normal Pupils: PERRL EOM: EOM intact bilaterally Neck Neck: normal visual inspection, full ROM and no lymphadenopathy Lymphatic: no lymphadenopathy noted Chest Chest: normal inspection of the chest Resp Effort & Inspection: normal respiratory effort and able to speak in complete sentences Auscultation: clear to auscultation bilaterally Cardio Jugular venous pressure: no JVD Rate: regular rate Rhythm: regular rhythm Heart Sounds: S1 normal and S2 normal GI Inspection: normal to inspection Palpation: soft and no hepatosplenomegaly Auscultation: normal bowel sounds General: deferred Back/Spine/Pelvis Back: no CVA tenderness Skin General skin exam: no rashes or lesions noted Wounds: wounds noted (unable to visualize wound, in drsg, c/d/i with surgical shoe in place) Neuro General: patient alert, patient awake and patient oriented x3 Extrem General: normal to inspection and full ROM Left lower extremity: foot (surgical drsg) Details: no edema Psych Mental Status: mental status grossly normal Speech and Movement: speech and movement normal Mood: congruent mood Affect: normal affect DS: Data Vitals/I&O Vitals and I&O: Vital Signs Temperature 36.8 C 03/10/20 08:00 Temperature Source Tympanic 03/10/20 08:00 Pulse 94 H 03/10/20 08:00 Pulse Rhythm Regular 03/10/20 02:45 Respiratory Rate 19 03/10/20 08:00 Respiratory Effort Non-Labored 03/10/20 02:45 Respiratory Depth Normal 03/10/20 02:45 Respiratory Pattern Normal 03/10/20 02:45 Blood Pressure 120/80 03/10/20 10:26 Pulse Oximetry 93 03/10/20 08:00 Oxygen Delivery Method Room Air 03/10/20 08:00 Oxygen Flow Rate 0 03/10/20 08:00 Pain Level 8 03/10/20 09:35 Comment 03/10/20 08:00 Intake & Output 03/09/20 03/09/20 03/10/20 11:59 23:59 11:59 Intake Total 810 / 1740 930 / 1740 Output Total 1250 / 1250 400 / 400 Balance -440 / 490 930 / 490 -400 / -400 Intake: Oral 810 / 1740 930 / 1740 Output: Urine 1250 / 1250 400 / 400 Other: Urine Color Yellow Yellow Urine Appearance Clear Clear Urine Odor Normal Comment patient voided in the toilet, unable to flush patient voided in the bathroom, patient flushed Stool Size Moderate Moderate Stool Characteristics Soft Soft Formed Formed Voiding Methods Bedside Commode Toilet Toilet Data Completed and Pending Labs on day of discharge: Labs from last 24 hours 03/08/20 11:20 COVID-19 PCR Negative Nasopharyn COVID-19 PCR Not Applicable Ref Test Perform Site [facility] Medical History Abnormal gait Angioedema Pt. denies this Carpal tunnel syndrome Cervical spondylosis with radiculopathy Closed traumatic dislocation of metatarsal joint Complex regional pain syndrome Depressive disorder GERD (gastroesophageal reflux disease) Hyperlipemia Hypertension Hypokalemia Hypothyroidism Impetigo Tremor Surgical History H/O sinus surgery History of back surgery Hx of colonoscopy Social History Smoking/Tobacco Use Status: Never Alcohol Intake: current Alcohol Intake frequency: a few times a month Alcohol type: wine Drug use: Never Substance use type: does not use Do you feel safe at home: Yes Additional Social history: lives alone Documented by User: Dani Matta MD 03/10/20 17:02 Discharge Plan Disposition Patient Disposition: OTHER Condition: Good Discharge Details Reason For Visit: AMBULATORY DYSFUNCTION Admit Date/Time: 03/07/20 10:57 Admit Provider: Kyrie Gary Attending Provider: Kyrie Gary Primary Care Provider: Demetrio Vizcaino Hospital Course Hospital Course: 64 y.o female with PMH of hypothyroidism, HTN, HLD, depression admitted to [facility] M/S post surgery with Dr. Osborn. He performed a Montoya Chano procedure on metatarsals 1-5 to the left foot. She was admitted for pain management and rehab referral. Pain has been controlled. She has been working with PT and able to get oob to chair. Dr. Osborn wants follow up on Mar 17 or . Drsg c/d/i. She is being discharged to [facility], [place] for further management. Home Meds and New Rx's Prescriptions: New ibuprofen [IBU] 800 mg Tablet 800 mg PO TID Qty: 30 RF: 0 omega 5-duj-feo-fish oil 1,000 mg (120 mg-180 mg) Capsule 1 cap PO DAILY Qty: 30 RF: 0 oxycodone-acetaminophen 5-325 mg Tablet 1 tab PO Q4H Qty: 20 RF: 0 Continued citalopram 10 mg tablet 10 mg PO DAILY RF: 0 omeprazole 40 mg capsule,delayed release(DR/EC) 40 mg PO DAILY RF: 0 levothyroxine 25 mcg tablet 25 mcg PO DAILY RF: 0 levothyroxine 88 mcg tablet 88 mcg PO DAILY RF: 0 amlodipine 10 mg tablet 10 mg PO DAILY RF: 0 gemfibrozil 600 mg tablet 600 mg PO BID RF: 0 simvastatin 20 mg tablet 20 mg PO DAILY RF: 0 lisinopril 5 mg tablet 5 mg PO DAILY RF: 0 hydrochlorothiazide 25 mg tablet 25 mg PO DAILY RF: 0 albuterol sulfate 90 mcg/actuation HFA aerosol inhaler 2 puff INHALATION Q4H PRNRF: 0 diazepam 5 mg tablet 5 mg PO BID PRN PRNRF: 0 cyclobenzaprine 5 mg tablet 5 mg PO TID PRN PRNRF: 0 duloxetine 60 mg capsule,delayed release(DR/EC) 60 mg PO BID RF: 0 pregabalin 200 mg capsule 200 mg PO BID Qty: 30 RF: 0 Discharge Instructions Instructions: Narcotic Safety (DC) Additional Instructions: Discharge to [place] Follow up with Dr. Osborn on Mar 17 or 3 Take medication as directed. Stand Alone Forms: Nursing Discharge Form Referrals: Yo Osborn DPM [[facility] STAFF PHYSICIAN] - (call Dr Farias office at for follow up on March 17 or March 18) Activity:: Activity as Tolerated Equipment/Supplies:: No Equipment Needed Diet:: Normal Diet Discharge Orders Discharge Orders: Discharge Order (Routine); Ordered 03/10/20 Ordered By: Morena Rolle Discharge Data Discharge Date/Time-TO BE ENTERED AT DEPARTURE: 03/10/20 13:47 [facility] Medical History Abnormal gait Angioedema Pt. denies this Carpal tunnel syndrome Cervical spondylosis with radiculopathy Closed traumatic dislocation of metatarsal joint Complex regional pain syndrome Depressive disorder GERD (gastroesophageal reflux disease) Hyperlipemia Hypertension Hypokalemia Hypothyroidism Impetigo Tremor Surgical History H/O sinus surgery History of back surgery Hx of colonoscopy Social History Smoking/Tobacco Use Status: Never Alcohol Intake: current Alcohol Intake frequency: a few times a month Alcohol type: wine Drug use: Never Substance use type: does not use Do you feel safe at home: Yes Additional Social history: lives alone
--- NOTE | 2020-03-10 13:13 | PT.INTREAT ---
Date of service: 03/10/20 Time of Service: 11:00 PT Notes Visit Reasons: AMBULATORY DYSFUNCTION Inpatient Physical Therapy Treatment Note [facility] Date: 03/10/2020 PRECAUTIONS: Fall, WBAT L SUBJECTIVE: Jeanne states that she walked with nursing earlier today, and that she is discharging to SNF later today. OBJECTIVE: PAIN: No complaints of pain BED MOBILITY/TRANSFERS Supine-sit: S Sit-stand: CGA Stand-sit: CGA GAIT Assistive Device: FWW Weight bearing: WBAT L Assist: CGA Distance: 200' Deviation: Slow pace, unsteady gait, LOB x1 ASSESSMENT: Patient demonstrates unsteady gait even with FWW support, requiring CGA. Patient would benefit from continued gait and transfer training as well as global strengthening for improved safety with mobility and with performing daily functional tasks. PLAN: Continue with gait and transfer training and global strengthening at SNF TREATMENT CODE/TIME: 20 minutes; [id number]
--- NOTE | 2020-03-13 12:09 | PT.INDS ---
Date of service: 03/13/20 Time of Service: 12:09 PT Notes Visit Reasons: AMBULATORY DYSFUNCTION Physical Therapy Inpatient Discharge Summary Date: 03/13/2020 Referring Doctor: Morena Rolle NP PT Orders: PT CONSULT: Eval/Treat. Precautions: Fall. Standard. Post-op shoe on the right side and regular sneaker on the left side when out of bed. Weight bearing as tolerated on the R LE. Patient Profile/Admitting Diagnosis: Jeanne is a 64-year-old female with senile left hallux abducto valgus deformity, 2nd/3rd/4th MTP dislocation, and 5th MTP subluxation status post Montoya Chano type procedure with external K wire fixation of the left foot on postoperative day 0. PMHX: Medical History (Updated 03/07/20 @ 12:55 by Morena Rolle NP) Abnormal gait Angioedema Pt. denies this Carpal tunnel syndrome Cervical spondylosis with radiculopathy Closed traumatic dislocation of metatarsal joint Complex regional pain syndrome Depressive disorder GERD (gastroesophageal reflux disease) Hyperlipemia Hypertension Hypokalemia Hypothyroidism Impetigo Tremor Surgical History H/O sinus surgery History of back surgery Hx of colonoscopy Social History/Home Situation: Lives alone in an apartment with a ramp to enter. Has 3 dogs. 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 Independent with all ADLs using a SPC. Has had several falls in the past 12 months. Niece and friend help her out with grocery shopping and medical transportation. Equipment Owned/DME: Wheelchair, FWW, SPC Subjective: NT. See most recent HYDRAULIC HAMMER OPERATOR notes. Objective: General Observation: NT. See most recent HYDRAULIC HAMMER OPERATOR notes. Mental Status: NT. See most recent HYDRAULIC HAMMER OPERATOR notes. Pain: NT. See most recent HYDRAULIC HAMMER OPERATOR notes. ROM: Right Upper Extremity: Shoulder Flexion WFL. Shoulder abduction WFL. Elbow flexion WFL. Wrist flexion WFL. Opening and closing of hand WFL. Left Upper Extremity: Shoulder Flexion WFL. Shoulder abduction WFL. Elbow flexion WFL. Wrist flexion WFL. Opening and closing of hand WFL. Right Lower Extremity: Hip flexion WFL. Hip abduction WFL. Knee flexion WFL. Ankle dorsiflexion WFL. Ankle plantarflexion WFL. Left Lower Extremity: Hip flexion WFL. Hip abduction WFL. Knee flexion WFL. Ankle dorsiflexion WFL. Ankle plantarflexion WFL. Strength: Right Upper Extremity: Shoulder flexors 4-/5. Shoulder abductors 4-/5. Elbow flexors 4-/5. Elbow extensors 4-/5. Fancy Sewer strong. Left Upper Extremity: Shoulder flexors 4-/5. Shoulder abductors 4-/5. Elbow flexors 4-/5. Elbow extensors 4-/5. Fancy Sewer strong. Right Lower Extremity: Hip flexors 3+/5. Hip abductors 3+/5. Knee flexors 4-/5. Knee extensors 3+/5. Ankle dorsiflexors 3+/5. Ankle plantarflexors 3+/5. Left Lower Extremity:Hip flexors 3+/5. Hip abductors 3+/5. Knee flexors 4-/5. Knee extensors 3+/5. Ankle dorsiflexors 3+/5. Ankle plantarflexors 3+/5. Sensation: Intact as to pain and pressure on bilateral lower extremities. Bed Mobility/Transfers: Rolling supervision Supine to sit supervision Sit to supine supervision Sit to stand CGA Stand to sit CGA Bed to chair CGA Gait: 200 feet with FWW requiring CGA with WBAT on L LE and sneaker on R. Decreased beka due to WB status. Balance: Static Sitting: Normal Dynamic Sitting: Normal Static Standing: Fair Dynamic Standing: Fair Assessment: Jeanne terryinues to demonstrate functional mobility decline requiring the use of a front wheeled walker for all mobility ADL performance, generalized weakness, intentional tremor, difficulty with walking, and impairment in balance due to admitting diagnoses and postoperative status. Jeanne is a 64-year-old female with senile left hallux abducto valgus deformity, 2nd/3rd/4th MTP dislocation, and 5th MTP subluxation status post Montoya Chano type procedure with external K wire fixation of the left foot on postoperative day 0. She will require skilled services in order to mitigate underlying impairments and functional deficits listed below. Without PT services patient is at risk for further functional mobility decline, increased fall risk, and inability to return home alone. Patient continues to present with clinical signs and symptoms consistent with current/admitting diagnoses that have resulted to mobility limitations, gait instability, generalized weakness, and impairment of motor control as demonstrated by the following impairment level findings: 1. Decreased strength to right ankle major muscle groups 2. Impaired sitting/standing balance 3. Impaired activity tolerance 4. Limitation of joint range of motion in right ankle 5. Chronic intention tremors Impairments are continuing to contribute to the following functional limitations: 1. Increased dependence with transfers 2. Inability to safely ambulate without assistive device and physical assistance 3. Increase completion time for mobility ADL performance 4. Increased fall risk 5. Inability to negotiate steps alone safely Goals: Goals X1 week 1. Supine-Sit independent NOT MET 2. Sit-Supine independent NOT MET 3. Sit-Stand independent NOT MET 4. Stand-Sit independent NOT MET 5. Bed-Chair independent NOT MET 6. Chair-Bed independent NOT MET 7. Independent gait on level surface with use of least restrictive device for at least 300 feet without report of pain nor dyspnea NOT MET 8. Independent with home exercise program NOT MET 9. Good static and dynamic standing balance/tolerance NOT MET DISCHARGE RECOMMENDATIONS: Patient will benefit from senior care facility placement for continued skilled physical therapy services in order to progress mobility level, strength, and balance in preparation for a safe discharge to home. TREATMENT CODE/TIME: SC Thank you for the opportunity to participate in the care of this patient. Karon Srinivasan PT, DPT, CLT [facility] [place], [place]
== END 2020-03-10 13:47 | disposition other institution (70) | DRG 505 ==
LOC: MS 11:14
PROVIDERS: Nurse Practitioner Family; Admitting Provider Internal Medicine; PCP Internal Medicine; Referring Provider Podiatrist; Visit Provider Internal Medicine
PROC: 0QBP0ZZ Excision of Left Metatarsal, Open Approach (ICD-10-PCS; CPT 28292; principal; 2020-03-07 07:30)
DX: M20.12 Hallux valgus (acquired), left foot (principal); M24.478 Recurrent dislocation, left toe(s); E03.9 Hypothyroidism, unspecified; K21.9 Gastro-esophageal reflux disease without esophagitis; I10 Essential (primary) hypertension; E78.5 Hyperlipidemia, unspecified; F32.9 Major depressive disorder, single episode, unspecified; Z11.59 Encounter for screening for other viral diseases
CPT/HCPCS: 28292; 28114; 36415; 80048; 90686; 97162; 97530; 99223; 99233; 99235; 99239; J1650; NC; U0003; 85025; J1100; J2270; J3480

== ENCOUNTER 2020-04-21 14:21 | Outpatient (REF) | payer MEDICARE, SELFPAY | END 2020-04-21 14:41 | LOC: LBN 14:21 | PROVIDERS: PCP Internal Medicine; Visit Provider Podiatrist | DX: L02.612 Cutaneous abscess of left foot (principal) | CPT/HCPCS: 87077; 87070; 87186; 87205 ==

== ENCOUNTER 2020-04-22 07:58 | Inpatient (IN) | payer MEDICARE, SELFPAY ==
[2020-04-22] VITALS (9 sets, daily range): BP systolic 102–132; BP diastolic 75–98; PULSE 59–86; RESP 16–18; TEMP 36.1–37.1; O2SAT 93–100
--- NOTE | 2020-04-22 08:19 | W.ED.GENAD ---
Discharge Plan Discharge Details Chief Complaint: Cellulitis Admit Date/Time: 04/22/20 08:28 Admit Provider: Kyrie Gary Attending Provider: Kyrie Gary Primary Care Provider: Demetrio Vizcaino ED Provider: Sunshine Hammond Medical Decision Making 64-year-old female presents to the ED via wheelchair for left foot cellulitis. She had foot surgery done by Dr. Lau on March 07. She began with increased pain approximately 1 week ago yesterday she noted a wound which had drained purulent material. She is rating her pain a 9 out of 10. She reports a low-grade fever of 99.4. On initial exam she does have a swollen erythemic foot with 2 open areas noted to the dorsal aspect. Very tender to the touch. 01 05: Spoke with Dr. Osborn with podiatry he recommends admission to the hospital for IV antibiotics as is recommending an MRI of her extremity. Will page hospitalist. MRI ordered they are unable to do the exam until noon. 830: Spoke with Dr. Gary who agrees to accept patient for admission. He recommends MRSA nasal swab and another wound culture of the foot. 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 GFR is [address] of the lower extremity without contrast was ordered at this time. CLINICAL HISTORY: Left foot cellulitis TECHNIQUE: COMPARISON: No exams were available for comparison FINDINGS: CT examination of the foot was performed without contrast administration. The patient has multiple previous osteotomies including the heads of the 1st through 5th metatarsals and the bases proximal phalanges of 1st and 2nd toes. There is new bone formation noted at multiple sites associated with the osteotomies which may represent normal healing process versus osteomyelitis. There is question of erosion or bony destruction at the osteotomy sites at 1st MTP joint, the distal 2nd 3rd and 4th metatarsals, and the base the proximal phalanx the 5th toe. There is marked soft tissue swelling involving each of the osteotomy sites as well, no gas collection seen. IMPRESSION: Multiple prior osteotomies as described above, findings worrisome for osteomyelitis at multiple sites, please see above discussion. Patient admitted to [facility]. HPI General Mode of arrival: wheelchair. Date/Time Provider Initiated Documentation: 04/22/20 08:06. Limitations to Documentation: no limitations. Information obtained by: patient. HPI Narrative: 64-year-old female presents to the ED via wheelchair for left foot cellulitis. She had foot surgery done by Dr. Lau on March 07. She began with increased pain approximately 1 week ago yesterday she noted a wound which had drained purulent material. She is rating her pain a 9 out of 10. She reports a low-grade fever of 99.4. On initial exam she does have a swollen erythemic foot with 2 open areas noted to the dorsal aspect. Very tender to the touch. Related Data Home Medications Medication Instructions Recorded Confirmed albuterol sulfate 2 puff INHALATION Q4H PRN 03/05/20 04/22/20 amlodipine 10 mg PO DAILY 03/05/20 04/22/20 citalopram 10 mg PO DAILY 03/05/20 04/22/20 cyclobenzaprine 5 mg PO TID PRN PRN 03/05/20 04/22/20 diazepam 5 mg PO BID PRN PRN 03/05/20 04/22/20 duloxetine 60 mg PO BID 03/05/20 04/22/20 gemfibrozil 600 mg PO BID 03/05/20 04/22/20 hydrochlorothiazide 25 mg PO DAILY 03/05/20 04/22/20 levothyroxine 25 mcg PO DAILY 03/05/20 04/22/20 levothyroxine 88 mcg PO DAILY 03/05/20 04/22/20 lisinopril 5 mg PO DAILY 03/05/20 04/22/20 omeprazole 40 mg PO DAILY 03/05/20 04/22/20 simvastatin 20 mg PO DAILY 03/05/20 04/22/20 ibuprofen [IBU] 800 mg PO TID #30 tab 03/10/20 04/22/20 omega 2-qlk-yxq-fish oil 1 cap PO DAILY #30 cap 03/10/20 04/22/20 pregabalin 200 mg PO BID #30 cap 03/10/20 04/22/20 sulfamethoxazole-trimethoprim 1 tab PO BID 04/22/20 04/22/20 Previous Rx's Medication Instructions Recorded ibuprofen [IBU] 800 mg PO TID #30 tab 03/10/20 omega 6-kvn-dzc-fish oil 1 cap PO DAILY #30 cap 03/10/20 pregabalin 200 mg PO BID #30 cap 03/10/20 Allergies Allergy/AdvReac Type Severity Reaction Status Date / Time lamotrigine [From Lamictal] Allergy Intermediate Itching Unverified 04/22/20 08:13 amoxicillin [From Augmentin] Allergy Mild Skin Rash Unverified 04/22/20 08:13 clavulanic acid Allergy Mild Skin Rash Unverified 04/22/20 08:13 [From Augmentin] moxifloxacin [From Avelox] Allergy Mild Hives Unverified 04/22/20 08:13 General Stated Complaint: Cellulitis REGINE: 3 Review of Systems Narrative: Constitutional: Negative for weight loss, alert and oriented, well groomed, normal body habitus, appears comfortable. HEENT: Denies trauma, headaches, blurry vision, nasal discharge, sore throat, trouble swallowing. Chest: Denies chest pain, palpitations, irregular rhythm, hypertension. Respiratory: Denies Shortness of breath, cough, hemoptysis. GI: Denies abdominal pain, nausea, vomiting, diarrhea, constipation. : Denies dysuria, hematuria, flank pain, rectal bleeding. Neuro: Denies dizziness, blurry vision, weakness, syncope, headache or facial numbness. Hematologic: Denies easy bruising, intolerance to heat or cold, hair loss. [facility] Medical History Abnormal gait Angioedema Pt. denies this Carpal tunnel syndrome Cervical spondylosis with radiculopathy Closed traumatic dislocation of metatarsal joint Complex regional pain syndrome Depressive disorder GERD (gastroesophageal reflux disease) Hyperlipemia Hypertension Hypokalemia Hypothyroidism Impetigo Tremor Surgical History H/O sinus surgery History of back surgery Hx of colonoscopy Social History Smoking/Tobacco Use Status: Never Smoking risk assessment performed?: Yes Alcohol Intake: current Alcohol Intake frequency: a few times a month Alcohol type: wine Drug use: Never Substance use type: does not use Do you feel safe at home: Yes Additional Social history: lives alone Exam Narrative Exam Narrative: Constitutional: Alert and oriented x3. Appears stated age. Normal body habitus. Head: Normocephalic, no trauma. Eyes: Pupils PERRLA, Red reflex noted, EOM's intact. Eyelids symmetrical without lesions, discharge, or swelling. ENT: Bilateral TM's WNL, External ear normal to inspection, no mastoid TTP, swelling, or erythema, Nasal turbinates WNL, no nasal discharge. Normal dentition, Posterior pharynx WNL, no exudate. Chest: RRR, Normal S1, S2, distal pulses intact. Resp: Lungs clear to auscultation bilaterally, no wheezes, rales, or rhonchi. Musculoskeletal: Extremely swollen, erythemic left foot, does have 2 wounds noted without purulent drainage to the dorsal aspect. Neurologic: Cranial nerves II-XII intact. Alert and oriented x 3. DTR's intact. Hematologic/Lymphatic: No ecchymosis, no lymphadenopathy. Course Vital Signs Vital signs: Vital Signs Temperature 36.7 C 04/22/20 08:05 Pulse 81 04/22/20 08:05 Respiratory Rate 18 04/22/20 08:05 Blood Pressure 102/82 04/22/20 08:05 Pulse Oximetry 98 04/22/20 08:05 Temperature 36.7 C 04/22/20 08:05 Temperature Source Temporal Artery Scan 04/22/20 08:05 Pulse 81 04/22/20 08:05 Respiratory Rate 18 04/22/20 08:05 Respiratory Effort Non-Labored 04/22/20 08:09 Blood Pressure 102/82 04/22/20 08:05 Blood Pressure Position Supine 04/22/20 08:05 Pulse Oximetry 98 04/22/20 08:05 Oxygen Delivery Method Room Air 04/22/20 08:05 Oxygen Flow Rate 0 04/22/20 08:05 Pain Level 9 04/22/20 08:05
[2020-04-22 08:55] LABS: Lactate 1.1 mmol/L (0.6-1.4)
[2020-04-22 08:58] LABS: Abs Immature Grans 0.05 10^3/uL (0.0-0.06); Absolute Basophil Count 0.03 10^3/uL (0.0-0.2); Absolute Eosinophil Count 0.28 10^3/uL (0.0-0.7); Absolute Lymphocyte Count 1.79 10^3/uL (1.2-3.4); Absolute Monocyte Count 0.97 10^3/uL (0.1-0.8); Absolute Neutrophil Count 8.42 10^3/uL (1.2-6.7); Basophils % 0.3; Eosinophils % 2.4; HCT 33.2 % (36.0-46.0); HGB 11.1 g/dL (11.2-15.7); Immature Grans % 0.4; Lymphocytes % 15.5; MCH 27.9 pg (27.0-33.0); MCHC 33.4 % (32.0-36.0); MCV 83.4 fL (80-95); MPV 10.6 fL (8.0-11.0); Monocytes % 8.4; Nucleated RBC 0 %; Platelet Count 426 10^3/uL (130-400); RBC 3.98 10^6/uL (3.93-5.22); RDW 13.3 % (11.7-14.6); WBC 11.54 10^3/uL (4.4-10.8)
--- NOTE | 2020-04-22 09:07 | HPE_ITS ---
Date of service: 04/22/20 Time of Service: 09:08 Assessment and Plan Assessment and plan (1) Hallux valgus (acquired), left foot: Status: Acute Assessment and plan: s/p repair on Mar 07, [address] Osborn. developed erythema, pain and drainage and treated outpatient on oral antibiotics, bactrim which started yesterday. symptoms are worsening so she was referred to ED for admission, given IV vancomycin. blood and wound cultures pending. inflammatory markers drawn for trending, follow weekly. (2) Abscess or cellulitis of foot: Status: Acute Assessment and plan: see above CT concerning for osteomyelitis. anticipate 6 weeks of IV antibiotics. (3) Acute kidney injury: Status: Acute Assessment and plan: will give IV fluids, hold lisinopril and hctz for now. watch kidney function closely, avoid nephrotoxic drugs, renal dosing as needed (4) Hypertension: Status: Chronic Assessment and plan: will monitor blood pressure, lisinopril placed on hold d/t BRISEYDA, continue amlodipine and monitor Qualifiers: Hypertension type: essential hypertension Qualified Code(s): I10 - Essential (primary) hypertension (5) Hyperlipemia: Status: Acute Assessment and plan: continue home medication Qualifiers: Hyperlipidemia type: unspecified Qualified Code(s): E78.5 - Hyperlipidemia, unspecified (6) Hypothyroidism: Status: Chronic Assessment and plan: check TSH, continue home levothyroxine dose Qualifiers: Hypothyroidism type: unspecified Qualified Code(s): E03.9 - Hypothyroidism, unspecified (7) GERD (gastroesophageal reflux disease): Status: Chronic Assessment and plan: continue omeprazole Qualifiers: Esophagitis presence: without esophagitis Qualified Code(s): K21.9 - Gastro-esophageal reflux disease without esophagitis (8) Hypomagnesemia: Status: Acute Assessment and plan: replete and follow (9) DVT prophylaxis: Status: Acute Assessment and plan: will hold on heparin at this time in case surgical procedure (10) Discharge planning issues: Status: Acute Assessment and plan: case management following will likely need 6 weeks of IV antibiotics discussed with Dr Gary. History of Present Illness History of Present Illness Chief Complaint: cellulitis Narrative: This is a 64-year-old female who presented to the ED for left foot cellulitis. She had surgical repair of multiple toe deformities secondary to traumatic event 3 years ago, repair done by Dr. Osborn on March 07, 2020. She began with increased pain approximately 1 week ago yesterday she noted a wound which had drained purulent material. She is rating her pain a 9 out of 10. She reports a low- grade fever of 99.4. On initial exam she does have a swollen erythemic foot with 2 open areas noted to the dorsal aspect. Very tender to the touch. He is requesting vancomycin and inpatient admission. he will follow her here. Review of Systems Constitutional Constitutional: Denies fever(s) Cardiovascular Cardiovascular: Denies chest pain and Denies dyspnea Respiratory Respiratory: Denies cough and Denies dyspnea Gastrointestinal Gastrointestinal: Denies abdominal pain, Reports diarrhea (2 weeks, multiple loose stools a day), Denies nausea and Denies vomiting PFSH Medical History Abnormal gait Angioedema Pt. denies this Carpal tunnel syndrome Cervical spondylosis with radiculopathy Closed traumatic dislocation of metatarsal joint Complex regional pain syndrome Depressive disorder GERD (gastroesophageal reflux disease) Hyperlipemia Hypertension Hypokalemia Hypothyroidism Impetigo Tremor Surgical History H/O sinus surgery History of back surgery Hx of colonoscopy Social History Smoking/Tobacco Use Status: Never Smoking risk assessment performed?: Yes Alcohol Intake: current Alcohol Intake frequency: a few times a month Alcohol type: wine Drug use: Never Substance use type: does not use Do you feel safe at home: Yes Additional Social history: lives alone Meds Home Medications and Allergies Home Medications Medication Instructions Recorded Confirmed Type albuterol sulfate 2 puff INHALATION Q4H PRN 03/05/20 04/22/20 History amlodipine 10 mg PO DAILY 03/05/20 04/22/20 History citalopram 10 mg PO DAILY 03/05/20 04/22/20 History cyclobenzaprine 5 mg PO TID PRN PRN 03/05/20 04/22/20 History duloxetine 60 mg PO BID 03/05/20 04/22/20 History gemfibrozil 600 mg PO BID 03/05/20 04/22/20 History hydrochlorothiazide 25 mg PO DAILY 03/05/20 04/22/20 History levothyroxine 25 mcg PO DAILY 03/05/20 04/22/20 History levothyroxine 88 mcg PO DAILY 03/05/20 04/22/20 History lisinopril 5 mg PO DAILY 03/05/20 04/22/20 History omeprazole 40 mg PO DAILY 03/05/20 04/22/20 History simvastatin 20 mg PO DAILY 03/05/20 04/22/20 History omega 3-frt-knm-fish oil 1 cap PO DAILY #30 cap 03/10/20 04/22/20 Rx pregabalin 200 mg PO BID #30 cap 03/10/20 04/22/20 Rx diazepam 2 mg PO TID PRN PRN 04/22/20 04/22/20 History ibuprofen 800 mg PO TID PRN PRN 04/22/20 04/22/20 History sulfamethoxazole-trimethoprim 1 tab PO BID 04/22/20 04/22/20 History Allergies Allergy/AdvReac Type Severity Reaction Status Date / Time lamotrigine [From Lamictal] Allergy Intermediate Itching Unverified 04/22/20 08:13 amoxicillin [From Augmentin] Allergy Mild Skin Rash Unverified 04/22/20 08:13 clavulanic acid Allergy Mild Skin Rash Unverified 04/22/20 08:13 [From Augmentin] moxifloxacin [From Avelox] Allergy Mild Hives Unverified 04/22/20 08:13 Exam Narrative Exam Narrative: Constitutional: Alert and oriented x3. Older than stated age. Normal body habitus. Head: Normocephalic,atraumatic. Eyes: EOM's intact. Eyelids symmetrical without lesions, discharge, or swelli ng. ENT:moist mucosa, no drainage from ears or nose. CV: RRR, distal pulses intact. edema bilateral lower extremities Resp: Lungs clear to auscultation bilaterally, respirations even and unlabored Musculoskeletal: dry skin, erythema to dorsal aspect of left foot over 4 metatarsal, does have 2 wounds noted without purulent drainage to the dorsal aspect. old surgical incision healed Neurologic: Alert and oriented x 3. Hematologic/Lymphatic: No ecchymosis, no lymphadenopathy. Results Labs Result diagrams: 04/22/20 08:47 04/22/20 08:47 Labs: Laboratory Results - last 24 hr 04/22/20 04/22/20 08:47 08:47 WBC 11.54 H RBC 3.98 Hgb 11.1 L Hct 33.2 L MCV 83.4 MCH 27.9 MCHC 33.4 RDW 13.3 Plt Count 426 H MPV 10.6 Immature Gran % 0.4 Neutrophils % 73.0 Lymphocytes % 15.5 Monocytes % 8.4 Eosinophils % 2.4 Basophils % 0.3 Nucleated RBC % 0 Absolute Neutrophils 8.42 H Absolute Lymphocytes 1.79 Absolute Monocytes 0.97 H Absolute Eosinophils 0.28 Absolute Basophils 0.03 VBG Lactate 1.1 Last Vital Signs Temp 37 C 04/22/20 09:07 Pulse 81 04/22/20 08:05 Resp 18 04/22/20 08:05 BP 102/82 04/22/20 08:05 Pulse Ox 98 04/22/20 08:05 COVID-19 Screening Have you, or household traveled for leisure in last 14 days?: No Had IN PERSON contact w/suspected or confirmed C-19 person: No
[2020-04-22] MEDS: Normal Saline 1,000 ML 125 ML IV ×2 (09:08→18:16)
[2020-04-22 09:10] LABS: ALT 15 U/L (14-59); AST 20 U/L (15-37); Albumin 3.7 g/dL (3.4-5.0); Alkaline Phosphatase 133 U/L (46-116); Anion Gap 14.4 mmol/L (3-11); BUN 29 mg/dL (7-18); Bilirubin, Total 0.3 mg/dL (0.2-1.0); C-Reactive Protein 1.81 mg/dL (0.0-0.3); CO2 18.6 mmol/L (21.0-32.0); CREATININE 1.81 mg/dL (0.55-1.02); Calcium 9.4 mg/dL (8.5-10.1); Chloride 93 mmol/L (98-107); Estimated GFR 28.33 (mL/min/1.73m2); Glucose 99 mg/dL (74-106); Magnesium 1.2 mg/dL (1.8-2.4); Potassium 4.1 mmol/L (3.5-5.1); Sodium 126 mmol/L (136-145); Total Protein 8.3 g/dL (6.4-8.2)
[2020-04-22] MEDS: VANCOMYCIN 1,000 MG in Normal Saline 250 ML 166.667 MG IVPB (09:10)
--- NOTE | 2020-04-22 09:15 | DI.CT_ITS ---
EXAM: CT LOWER EXTREMITY LT WO CLINICAL HISTORY: Left foot cellulitis TECHNIQUE: COMPARISON: No exams were available for comparison FINDINGS: CT examination of the foot was performed without contrast administration. The patient has multiple p revious osteotomies including the heads of the 1st through 5th metatarsals and the bases proximal pha langes of 1st and 2nd toes. There is new bone formation noted at multiple sites associated with the osteotomies which may represent normal healing process versus osteomyelitis. There is question of er osion or bony destruction at the osteotomy sites at 1st MTP joint, the distal 2nd 3rd and 4th metatar sals, and the base the proximal phalanx the 5th toe. There is marked soft tissue swelling involving each of the osteotomy sites as well, no gas collection seen. IMPRESSION: Multiple prior osteotomies as described above, findings worrisome for osteomyelitis at multiple sites , please see above discussion. RADIATION DOSE DELIVERED: 273.38mGy.cm Total DLP
[2020-04-22] MEDS: Acetaminophen 325 MG TAB 650 MG PO (09:37)
[2020-04-22] MEDS: MAGNESIUM SULFATE 4 GM/100 ML BAG IVPB (12:22)
[2020-04-22 13:42] LABS: C Diff PCR Negative (Negative)
--- NOTE | 2020-04-22 18:00 | POCOE_ITS ---
Date of service: 04/22/20 Time of Service: 18:00 History of Present Illness History of Present Illness Chief Complaint: Pain and swelling left foot with signs of infection Narrative: Jeanne underwent surgery of the left foot March 07 consisting of yanez metatarsal head resection and external K wire fixation.. She is approximately 6 weeks postop and reported increasing redness and pain in the fourth intermetatarsal space of the left foot which started last . Jeanne did have an injury to the left foot approximately 3 years ago, she had surgical intervention at that time and had developed an osteomyelitis postoperatively and was treated with prolonged IV antibiotic. Jeanne was advised to go to the emergency room this morning for admission to the floor. She is seen resting comfortably in her room. [facility] Medical History Abnormal gait Angioedema Pt. denies this Carpal tunnel syndrome Cervical spondylosis with radiculopathy Closed traumatic dislocation of metatarsal joint Complex regional pain syndrome Depressive disorder GERD (gastroesophageal reflux disease) Hyperlipemia Hypertension Hypokalemia Hypothyroidism Impetigo Tremor Surgical History H/O sinus surgery History of back surgery Hx of colonoscopy Social History Smoking/Tobacco Use Status: Never Smoking risk assessment performed?: Yes Alcohol Intake: current Alcohol Intake frequency: a few times a month Alcohol type: wine Drug use: Never Substance use type: does not use Do you feel safe at home: Yes Additional Social history: lives alone Exam Narrative Exam Narrative: Jeanne has longstanding edema in the left foot. Surgical incisions located over the first metatarsal and in the second intermetatarsal space are well-healed and nontender. The incision overlying the fourth intermetatarsal space is warm to the touch. With local signs of erythema. The space is firm to the touch without fluctuance. Erythema is located dorsally over the fourth intermetatarsal space with some extension medially but no proximal ascending cellulitis observed. Her calves are soft to palpation without findings of DVT or lymphangitis. Peripheral pulses have been palpable but are more diminished tonight in the left foot due to edema. She has good capillary return to all toes. The foot is warm to the touch. CT study is reviewed and is consistent with probable osteomyelitis of the proximal phalanx fifth toe possibly fifth metatarsal head. Impressions: Reactivation dormant osteomyelitis left foot Plan: Jeanne is scheduled to go to the OR tomorrow around noon for a washout of the fourth intermetatarsal space, bone biopsy and debridement as needed. She understands that multiple procedures may be required before the infection has been arrested. She understands that prolonged IV antibiotics will likely be required. We will keep her on the vancomycin at this time pending microbiologic results of bone cultures and will consider expansion to cover Pseudomonas and gram-negative species postoperatively. I did discuss the case with Dr. Barry. Results Last Vital Signs Temp 36.1 C L 04/22/20 15:50 Pulse 71 04/22/20 15:50 Resp 18 04/22/20 15:50 BP 118/75 04/22/20 15:50 Pulse Ox 95 04/22/20 15:50 Labs Result diagrams: 04/22/20 08:47 04/22/20 08:47 Labs: Laboratory Results - last 24 hr 04/22/20 04/22/20 04/22/20 08:47 08:47 08:47 WBC 11.54 H RBC 3.98 Hgb 11.1 L Hct 33.2 L MCV 83.4 MCH 27.9 MCHC 33.4 RDW 13.3 Plt Count 426 H MPV 10.6 Immature Gran % 0.4 Neutrophils % 73.0 Lymphocytes % 15.5 Monocytes % 8.4 Eosinophils % 2.4 Basophils % 0.3 Nucleated RBC % 0 Absolute Neutrophils 8.42 H Absolute Lymphocytes 1.79 Absolute Monocytes 0.97 H Absolute Eosinophils 0.28 Absolute Basophils 0.03 VBG Lactate 1.1 Sodium 126 L Potassium 4.1 Chloride 93 L Carbon Dioxide 18.6 L Anion Gap 14.4 H BUN 29 H Creatinine 1.81 H Estimated GFR/1.73 m2 28.33 Glucose 99 Calcium 9.4 Magnesium 1.2 L Total Bilirubin 0.3 AST 20 ALT 15 Alkaline Phosphatase 133 H C-Reactive Protein 1.81 H Total Protein 8.3 H Albumin 3.7 Stl C.difficile Tox PCR 04/22/20 12:00 WBC RBC Hgb Hct MCV MCH MCHC RDW Plt Count MPV Immature Gran % Neutrophils % Lymphocytes % Monocytes % Eosinophils % Basophils % Nucleated RBC % Absolute Neutrophils Absolute Lymphocytes Absolute Monocytes Absolute Eosinophils Absolute Basophils VBG Lactate Sodium Potassium Chloride Carbon Dioxide Anion Gap BUN Creatinine Estimated GFR/1.73 m2 Glucose Calcium Magnesium Total Bilirubin AST ALT Alkaline Phosphatase C-Reactive Protein Total Protein Albumin Stl C.difficile Tox PCR Negative
[2020-04-22] MEDS: DULoxetine 30 MG CAP 60 MG PO (19:56)
[2020-04-22] MEDS: Heparin 5,000 UNITS/ML VIAL 5000 UNITS SC (19:57)
[2020-04-23 02:38] LABS: COVID-19 RT-PCR UVMMC Result Negative (Negative)
[2020-04-23] MEDS: Normal Saline 1,000 ML 125 ML IV ×2 (03:04→17:00)
[2020-04-23 03:13] VITALS: BP 145/84; PULSE 68; RESP 18; TEMP 36; O2SAT 100
[2020-04-23] MEDS: Acetaminophen 650 MG SUPP PR (03:59)
[2020-04-23] MEDS: Levothyroxine 25 MCG TAB PO (05:39)
[2020-04-23] MEDS: Levothyroxine 88 MCG TAB PO (05:39)
[2020-04-23 06:35] LABS: Abs Immature Grans 0.01 10^3/uL (0.0-0.06); Absolute Basophil Count 0.04 10^3/uL (0.0-0.2); Absolute Eosinophil Count 0.35 10^3/uL (0.0-0.7); Absolute Lymphocyte Count 1.48 10^3/uL (1.2-3.4); Absolute Monocyte Count 0.62 10^3/uL (0.1-0.8); Basophils % 0.6; Eosinophils % 5.1; HCT 31.6 % (36.0-46.0); HGB 10.5 g/dL (11.2-15.7); Immature Grans % 0.1; Lymphocytes % 21.7; MCH 28.1 pg (27.0-33.0); MCHC 33.2 % (32.0-36.0); MCV 84.5 fL (80-95); MPV 10.7 fL (8.0-11.0); Monocytes % 9.1; Neutrophils % 63.4; Nucleated RBC 0 %; Platelet Count 363 10^3/uL (130-400); RBC 3.74 10^6/uL (3.93-5.22); RDW 13.3 % (11.7-14.6); WBC 6.81 10^3/uL (4.4-10.8)
[2020-04-23 06:39] LABS: Absolute Neutrophil Count 4.32 10^3/uL (1.2-6.7)
[2020-04-23 06:48] LABS: ALT 14 U/L (14-59); AST 16 U/L (15-37); Albumin 3.2 g/dL (3.4-5.0); Alkaline Phosphatase 121 U/L (46-116); Anion Gap 9.9 mmol/L (3-11); BUN 23 mg/dL (7-18); Bilirubin, Total 0.3 mg/dL (0.2-1.0); CO2 22.1 mmol/L (21.0-32.0); CREATININE 1.24 mg/dL (0.55-1.02); Calcium 8.4 mg/dL (8.5-10.1); Chloride 103 mmol/L (98-107); Estimated GFR 43.83 (mL/min/1.73m2); Glucose 96 mg/dL (74-106); Potassium 3.5 mmol/L (3.5-5.1); Sodium 135 mmol/L (136-145); Total Protein 7.3 g/dL (6.4-8.2)
[2020-04-23 07:42] VITALS: BP 123/69; PULSE 69; RESP 18; TEMP 36; O2SAT 97
[2020-04-23] MEDS: amLODIPine 10 MG TAB PO (07:52)
--- NOTE | 2020-04-23 09:16 | W.PM.PROGNOT ---
Date of Service Date of service: 04/23/20 Time of Service: 09:16 Assessment and Plan Assessment and plan (1) Hallux valgus (acquired), left foot: Status: Acute Assessment and plan: Continue IV vancomycin day 2. blood and wound cultures pending. inflammatory markers drawn for trending, follow weekly. podiatry following, plan for the OR today (2) Abscess or cellulitis of foot: Status: Acute Assessment and plan: see above CT concerning for osteomyelitis. anticipate extended course of IV antibiotics. (3) Acute kidney injury: Status: Acute Assessment and plan: Improved overnight with IV hydration. Continue to watch kidney function closely, avoid nephrotoxic drugs, renal dosing as needed. continue to hold lisinipril and hctz (4) Hypertension: Status: Chronic Assessment and plan: blood pressures have been stable, will continue to monitor blood pressure, lisinopril and HCTZ placed on hold d/t BRISEYDA, continue amlodipine and monitor. Qualifiers: Hypertension type: essential hypertension Qualified Code(s): I10 - Essential (primary) hypertension (5) Hyperlipemia: Status: Acute Assessment and plan: continue home medication Qualifiers: Hyperlipidemia type: unspecified Qualified Code(s): E78.5 - Hyperlipidemia, unspecified (6) Hypothyroidism: Status: Chronic Assessment and plan: check TSH, continue home levothyroxine dose Qualifiers: Hypothyroidism type: unspecified Qualified Code(s): E03.9 - Hypothyroidism, unspecified (7) GERD (gastroesophageal reflux disease): Status: Chronic Assessment and plan: continue omeprazole Qualifiers: Esophagitis presence: without esophagitis Qualified Code(s): K21.9 - Gastro-esophageal reflux disease without esophagitis (8) Hypomagnesemia: Status: Acute Assessment and plan: replete and follow (9) Alcohol dependence: Status: Acute Assessment and plan: no signs of withdrawal, will monitor CIWA (10) Diarrhea: Status: Acute Assessment and plan: stool negative for cdiff, consider imodium if continues (11) DVT prophylaxis: Status: Acute Assessment and plan: will hold on heparin at this time for planned surgical procedure (12) Discharge planning issues: Status: Acute Assessment and plan: case management following will likely need 6 weeks of IV antibiotics discussed with Dr Gary. Subjective Subjective Patient reports: no new complaints, still having pain and afebrile Interval history since last seen: has been NPO for scheduled procedure Exam Narrative Exam Narrative: Constitutional: Alert and oriented x3. Older than stated age. Normal body habitus. Head: Normocephalic,atraumatic. Eyes: EOM's intact. Eyelids symmetrical without lesions, discharge, or swelling. ENT:moist mucosa, no drainage from ears or nose. CV: RRR, distal pulses intact. edema bilateral lower extremities Resp: Lungs clear to auscultation bilaterally, respirations even and unlabored Musculoskeletal: dry skin, erythema to dorsal aspect of left foot over 4 metatarsal, does have 2 wounds noted without purulent drainage to the dorsal aspect. old surgical incision healed Neurologic: Alert and oriented x 3. Hematologic/Lymphatic: No ecchymosis, no lymphadenopathy. Objective Last Vital Signs Temp 36.0 C L 04/23/20 07:42 Pulse 69 04/23/20 07:42 Resp 18 04/23/20 07:42 BP 123/69 04/23/20 07:42 Pulse Ox 97 04/23/20 07:42 Laboratory Results - last 24 hr 04/22/20 04/22/20 04/22/20 08:30 12:00 15:53 WBC RBC Hgb Hct MCV MCH MCHC RDW Plt Count MPV Immature Gran % Neutrophils % Lymphocytes % Monocytes % Eosinophils % Basophils % Nucleated RBC % Absolute Neutrophils Absolute Lymphocytes Absolute Monocytes Absolute Eosinophils Absolute Basophils Sodium Potassium Chloride Carbon Dioxide Anion Gap BUN Creatinine Estimated GFR/1.73 m2 Glucose Calcium Total Bilirubin AST ALT Alkaline Phosphatase Total Protein Albumin Stl C.difficile Tox PCR Negative Cancelled COVID-19 PCR Negative Nasopharyn COVID-19 PCR Not Applicable Ref Test Perform Site [place] [facility] 04/23/20 04/23/20 06:19 06:19 WBC 6.81 D RBC 3.74 L Hgb 10.5 L Hct 31.6 L MCV 84.5 MCH 28.1 MCHC 33.2 RDW 13.3 Plt Count 363 MPV 10.7 Immature Gran % 0.1 Neutrophils % 63.4 Lymphocytes % 21.7 Monocytes % 9.1 Eosinophils % 5.1 Basophils % 0.6 Nucleated RBC % 0 Absolute Neutrophils 4.32 Absolute Lymphocytes 1.48 Absolute Monocytes 0.62 Absolute Eosinophils 0.35 Absolute Basophils 0.04 Sodium 135 L Potassium 3.5 Chloride 103 Carbon Dioxide 22.1 Anion Gap 9.9 BUN 23 H Creatinine 1.24 H D Estimated GFR/1.73 m2 43.83 Glucose 96 Calcium 8.4 L Total Bilirubin 0.3 AST 16 ALT 14 Alkaline Phosphatase 121 H Total Protein 7.3 Albumin 3.2 L Stl C.difficile Tox PCR COVID-19 PCR Nasopharyn COVID-19 PCR Ref Test Perform Site
[2020-04-23 09:30] LABS: Magnesium 2.1 mg/dL (1.8-2.4)
[2020-04-23] MEDS: ACETAMINOPHEN 1,000 MG/100 ML BTL 400 MG IVPB ×2 (09:36→23:23)
[2020-04-23] MEDS: Lactated Ringers 1,000 ML 50 ML IV (12:36)
[2020-04-23] MEDS: Gentamicin 80 MG/2 ML VIAL 160 MG MC (13:35)
--- NOTE | 2020-04-23 13:50 | BONE_PTH ---
PATIENT: WILMER TRIPLETT LOC: U#:[id number] AGE/SX: 64/F ROOM: 206 RE04/22/[address]: Kyrie Gary : 1955 BED: A DIS: 04/26/2020 SPEC #: [id number] RECD: 04/23/20 16:36 STATUS: SOUSonali REQ #: [id number] RUDY: 04/23/20 13:[address]: Yo Osborn DEPT: Surgical Specimen RECD BY: Sil Campbell ENTERED: 04/23/20 16:37 SP TYPE: Bone OTHR DR: Demetrio Vizcaino Chris Tissues: 1 - BONE BX/CURRETTE NOT PATH FRACTURE Procedures: GROSS AND MICRO LEVEL 3 DECALCIFICATION Comments: [id number]
[2020-04-23 14:05] VITALS: BP 154/89; PULSE 70; RESP 18; TEMP 36; O2SAT 98
--- NOTE | 2020-04-23 14:07 | ROE_ITS ---
Date of service: 04/23/20 Time of Service: 14:07 Operative Note Operative Note DATE OF PROCEDURE: 04/23/20 PRE-OP DIAGNOSIS: Abscess left foot suspicious for osteomyelitis POST-OP DIAGNOSIS: same PROCEDURE: Incision and drainage with debridement fourth intermetatarsal space left foot with bone biopsies base proximal phalanx fifth digit and distal metatarsal shaft SURGEON: Yo Osborn ANESTHESIA: GETA ESTIMATED BLOOD LOSS: 3 PATHOLOGY: other TOURNIQUET TIME: 53 COMPLICATIONS: None Patient was transported to: floor Patient's condition: stable Implants: Stimulan antibiotic beads with gentamicin Indications: 64-year-old female approximately 5 and half weeks status post yanez metatarsal head resection of the left foot developed increasing redness, pain, sinus tracts formation overlying the fourth intermetatarsal space. She is being brought to the OR for a washout procedure with debridement of infected tissue including bone. Findings: No jaquan purulence was identified. Bone was obtained from the base of the proximal phalanx fifth toe and distal shaft fifth metatarsal for aerobic, anaerobic, samples with bone for pathology. Procedure Description: Jeanne was brought to the operative suite placed in the supine position with the left foot was prepped and draped in the usual sterile podiatric fashion. Timeout was performed by protocol. Attention was directed to the left foot which was exsanguinated and a well-padded ankle tourniquet inflated 250 mmHg. Attention was directed to the fourth intermetatarsal space of the left foot. Couple of sinus tracts were appreciated which when probed went through the skin did not track particularly deep, minimal undermining, no jaquan purulence was noted. With a #10 scalpel the previous incision was reopened over the fourth intermetatarsal space. The deeper tissue is grayish in appearance which is unchanged from what it looked like 5-1/2 to 6 weeks ago. The dissection plane appeared to be fairly well-healed and did not fall apart easily with disse cting scissors. Hemostasis was acquired with electrocautery. Dissection was carried down to the base of the proximal phalanx of the fifth toe. The soft tissue was removed and the bone inspected. No jaquan purulence was noted, bone was not particularly soft nor was it very hard. With power instrumentation I removed a portion of the base of the proximal phalanx for aerobic and anaerobic culture swabs with the remainder of the bone being placed in formalin for pathology. A small section of bone was also removed from the distal shaft of the fifth metatarsal which was also swabbed and placed in formalin for pathology.. The medial wall of the fourth intermetatarsal space appeared firm and not easily entered. The incision dorsally over the second intermetatarsal space is well- healed there were no signs of active infection. The incision overlying the first metatarsal was also well-healed without signs of infection or dehiscence. The wound was copiously irrigated with normal saline. I inserted stimulant beads with gentamicin into the fourth intermetatarsal space and close the wound primarily with a combination of near far far near 3-0 nylon suture interspersed with 4 oh simple interrupted suture. Xeroform gauze fluff compression dressings were applied and the tourniquet released at about 53 minutes. Vascularity returned immediately to all toes. Jeanne left the OR with vital signs stable vascular status intact sharp and sponge counts were correct. She will remain in- house for IV antibiotics bedrest.
[2020-04-23] MEDS: Normal Saline Flush 10 ML SYR IVP (14:25)
[2020-04-23] MEDS: diazePAM 2 MG TAB PO (14:26)
[2020-04-23 15:52] VITALS: BP 123/84; PULSE 68; RESP 17; TEMP 36; O2SAT 100
[2020-04-23] MEDS: cefTRIAXone 2 GM/50 ML BAG IVPB (16:40)
--- NOTE | 2020-04-23 17:24 | PHA.REVIEW ---
Pharmacy Admission Review - Admission Clinical Review (Last Reviewed 04/22/20 @ 18:02 by Yo Osbron DPM) Diarrhea (Acute) Alcohol dependence (Acute) Hypomagnesemia (Acute) Acute kidney injury (Acute) Abscess or cellulitis of foot (Acute) DVT prophylaxis (Acute) Discharge planning issues (Acute) Hyperlipemia (Acute) Hallux valgus (acquired), left foot (Acute) lamotrigine [From Lamictal] Allergy (Intermediate, Unverified 04/22/20 08:13) Itching amoxicillin [From Augmentin] Allergy (Mild, Unverified 04/22/20 08:13) Skin Rash clavulanic acid [From Augmentin] Allergy (Mild, Unverified 04/22/20 08:13) Skin Rash moxifloxacin [From Avelox] Allergy (Mild, Unverified 04/22/20 08:13) Hives Height 5 ft 7 in Weight 72.575 kg - Renal Dosing Renal Dosing: BUN 23 mg/dL (7-18) H 04/23/20 06:19 Creatinine 1.24 mg/dL (0.55-1.02) H D 04/23/20 06:19 Medications needing adjustments: Reviewed List of meds needing interventions: MEDS OK - Anticoagulation Anticoagulation: Hgb 10.5 g/dL (11.2-15.7) L 04/23/20 06:19 Hct 31.6 % (36.0-46.0) L 04/23/20 06:19 Plt Count 363 10^3/uL (130-400) 04/23/20 06:19 Creatinine 1.24 mg/dL (0.55-1.02) H D 04/23/20 06:19 DVT Prohphylaxis: N/A (taken to OR today) - Opiate Usage Evaluate Pain Scale/Pains Meds: N/A - Relevant Labs Sodium 135 mmol/L (136-145) L 04/23/20 06:19 Potassium 3.5 mmol/L (3.5-5.1) 04/23/20 06:19 Chloride 103 mmol/L (98-107) 04/23/20 06:19 Magnesium 2.1 mg/dL (1.8-2.4) 04/23/20 06:19 C-Reactive Protein 1.81 mg/dL (0.0-0.3) H 04/22/20 08:47 Electrolytes, C-Reactive P, ESR: Reviewed - DM Control DM Control: Glucose 96 mg/dL (74-106) 04/23/20 06:19 Insulin Dosing: N/A - Heart Failure/UT EF%, SELENA's, B-Blockers, Diuretics: Reviewed - BP Control BP Control: Blood Pressure 123/84 Blood Pressure 154/89 Blood Pressure 123/69 If elevated: Reviewed - Qtc Review If Elevated: N/A - IV to PO Switch IV Medications: Reviewed - Home Meds Home Med List reviewed: Intervened Relevent Home Meds Not ordered & why?: All ordered except for gemfibrozil -- DDI with simvastatin (MD aware), simvastatin was increased to 40mg recently per external rx record - Current meds Current Medication Order Review: Reviewed (Vancomycin DC'd, Ceftriaxone 2 grams q24h started today)
--- NOTE | 2020-04-23 17:36 | PDOC.CMIN ---
- If Service Date Differs Date of service: 04/23/20 Time of Service: 17:36 Care Management Initial Assess REASON FOR HOSPITALIZATION:: Cellulitis PAST MEDICAL HISTORY/PAST SURGICAL HISTORY:: Medical History. Abnormal gait. Angioedema. Pt. denies this. Carpal tunnel syndrome. Cervical spondylosis with radiculopathy. Closed traumatic dislocation of metatarsal joint. Complex regional pain syndrome. Depressive disorder. GERD (gastroesophageal reflux disease). Hyperlipemia. Hypertension. Hypokalemia. Hypothyroidism. Impetigo. Tremor. Surgical History. H/O sinus surgery. History of back surgery. Hx of colonoscopy PREVIOUS FUNCTIONAL STATUS/SOCIAL/FAMILY SUPPORTS:: Jeanne lives in [place] alone. Her recently. She has three large dogs that she speaks fondly of. She has some relatives and friends that live nearby and support her when she is in need. She is independent with ADL's at baseline. CURRENT FUNCTIONAL STATUS:: Jeanne was sitting up in her chair when CM met with her. She stated that she only stayed at [facility] for one week, and it wasn't a great experience. She was going down for a procedure today, and may need long-term abx, depending on her culture results. CM discussed options for abx treatment including remaining at [facility], infusion room, or home with HH service. She stated that she would prefer home if possible. CM will continue to follow. ADVANCE DIRECTIVES:: On file, Billy Walden listed as agent. Connie Walden listed as alternative agent. Has patient been provided with info about the portal/API?: Yes Did the patient sign up for the portal?: No CODE STATUS:: Full Code INSURANCE COVERAGE / FINANCIAL ISSUES:: [facility]/ [employer] CURRENT HOME/COMMUNITY SERVICES/EQUIPMENT:: Jeanne currently has HH services through [facility]. She owns a FWW, SPC and a wheelchair. PRIMARY CARE PHYSICIAN:: Demetrio Vizcaino POTENTIAL DISCHARGE NEEDS:: Possible home IV abx, resumption of HH services. PATIENT/FAMILY EDUCATION NEEDS:: Review discharge instructions regarding activity levels and medications, discussion of self care needs and goals of care. ANTICIPATED BARRIERS TO DISCHARGE:: None identified at this time. TRANSPORTATION:: Via private vehicle vs RCT PLAN:: Jaenne went to the OR for I & D today. She will likely need IV abx for 6 weeks, per report. CM will discuss options further with Erick to determine discharge plan. She will follow up with her PCP and discharge plan of care. She will have a resumption of HH services once ready for discharge. CM will continue to follow.
[2020-04-23] MEDS: DULoxetine 30 MG CAP 60 MG PO (19:55)
[2020-04-23] MEDS: Simvastatin 20 MG TAB PO (19:55)
[2020-04-23 20:00] VITALS: BP 131/82; PULSE 71; RESP 18; TEMP 36.5; O2SAT 98
[2020-04-23] MEDS: Omeprazole 20 MG CAPCR 40 MG PO (20:47)
[2020-04-23] MEDS: Milk of Magnesia 30 ML CUP PO (23:29)
[2020-04-23 23:42] VITALS: BP 168/94; PULSE 79; RESP 20; TEMP 36.9; O2SAT 97
[2020-04-24] MEDS: LORazepam 1 MG TAB PO/SL (00:41)
[2020-04-24] MEDS: Normal Saline 1,000 ML 125 ML IV (02:14)
[2020-04-24] MEDS: Levothyroxine 88 MCG TAB PO (05:44)
[2020-04-24] MEDS: Levothyroxine 25 MCG TAB PO (05:44)
[2020-04-24 07:52] VITALS: BP 136/73; PULSE 74; RESP 18; TEMP 36; O2SAT 92
[2020-04-24] MEDS: amLODIPine 10 MG TAB PO (07:52)
[2020-04-24] MEDS: Citalopram 10 MG TAB PO (07:52)
[2020-04-24] MEDS: Omega-3 Fatty Acids 1000 MG CAP 3000 MG PO (07:52)
[2020-04-24] MEDS: Pregabalin 100 MG CAP PO (07:52)
[2020-04-24] MEDS: Omeprazole 20 MG CAPCR 40 MG PO (07:52)
[2020-04-24] MEDS: DULoxetine 30 MG CAP 60 MG PO ×2 (07:52→20:01)
[2020-04-24] MEDS: Normal Saline Flush 10 ML SYR IVP ×3 (08:03→20:00)
[2020-04-24] MEDS: diazePAM 2 MG TAB PO ×3 (08:03→20:00)
[2020-04-24] MEDS: Ketorolac 15 MG/ML VIAL IVP ×2 (08:03→20:02)
[2020-04-24] MEDS: ACETAMINOPHEN 1,000 MG/100 ML BTL 400 MG IVPB (14:03)
--- NOTE | 2020-04-24 14:31 | W.PM.PROGNOT ---
Date of Service Date of service: 04/24/20 Time of Service: 14:31 Assessment and Plan Assessment and plan (1) Hallux valgus (acquired), left foot: Status: Acute Assessment and plan: post op day 1 ceftriaxone daily while awaiting culture report blood cultures negative after 48 hours. (2) Abscess or cellulitis of foot: Status: Acute Assessment and plan: see above anticipate extended course of IV antibiotics. (3) Acute kidney injury: Status: Acute Assessment and plan: Improved with IV hydration. Continue to watch kidney function closely, avoid nephrotoxic drugs, renal dosing as needed. continue to hold lisinipril and hctz for now. repeat bmp tomorrow. (4) Hypertension: Status: Chronic Assessment and plan: blood pressures have been controlled, will continue to monitor blood pressure, lisinopril and HCTZ placed on hold d/t BRISEYDA, continue amlodipine and monitor. Qualifiers: Hypertension type: essential hypertension Qualified Code(s): I10 - Essential (primary) hypertension (5) Hyperlipemia: Status: Acute Assessment and plan: continue home medication Qualifiers: Hyperlipidemia type: unspecified Qualified Code(s): E78.5 - Hyperlipidemia, unspecified (6) Hypothyroidism: Status: Chronic Assessment and plan: check TSH, continue home levothyroxine dose Qualifiers: Hypothyroidism type: unspecified Qualified Code(s): E03.9 - Hypothyroidism, unspecified (7) GERD (gastroesophageal reflux disease): Status: Chronic Assessment and plan: continue omeprazole Qualifiers: Esophagitis presence: without esophagitis Qualified Code(s): K21.9 - Gastro-esophageal reflux disease without esophagitis (8) Hypomagnesemia: Status: Acute Assessment and plan: replete and follow (9) Alcohol dependence: Status: Acute Assessment and plan: no signs of withdrawal, will monitor CIWA (10) Diarrhea: Status: Acute Assessment and plan: stool negative for cdiff, consider imodium if continues (11) DVT prophylaxis: Status: Acute Assessment and plan: will hold on heparin at this time for planned surgical procedure (12) Discharge planning issues: Status: Acute Assessment and plan: case management following will likely need 6 weeks of IV antibiotics discussed with Dr Gary. Subjective Subjective Patient reports: no new complaints, feels better, tolerating liquids well, tolerating a regular diet and afebrile Interval history since last seen: has been NPO for scheduled procedure Exam Narrative Exam Narrative: Constitutional: Alert and oriented x3. Older than stated age. Normal body habitus. Head: Normocephalic,atraumatic. Eyes: EOM's intact. Eyelids symmetrical without lesions, discharge, or swelling. ENT:moist mucosa, no drainage from ears or nose. CV: RRR, distal pulses intact. edema bilateral lower extremities Resp: Lungs clear to auscultation bilaterally, respirations even and unlabored Musculoskeletal: dry skin, erythema to dorsal aspect of left foot over 4 metatarsal, does have 2 wounds noted without purulent drainage to the dorsal aspect. old surgical incision healed Neurologic: Alert and oriented x 3. Hematologic/Lymphatic: No ecchymosis, no lymphadenopathy. Objective Last Vital Signs Temp 36.0 C L 04/24/20 07:52 Pulse 74 04/24/20 07:52 Resp 18 04/24/20 07:52 BP 136/73 04/24/20 07:52 Pulse Ox 92 04/24/20 07:52
[2020-04-24] MEDS: cefTRIAXone 2 GM/50 ML BAG IVPB (14:35)
[2020-04-24 15:40] VITALS: BP 129/70; PULSE 68; RESP 16; TEMP 37.1; O2SAT 96
--- NOTE | 2020-04-24 18:39 | W.PM.PROGNOT ---
Date of Service Date of service: 04/24/20 Time of Service: 18:39 Subjective Subjective Patient reports: no new complaints and feels better Exam Narrative Exam Narrative: Jeanne is seen at bedside. She is resting comfortably. She is smiling and cheerful. She is postop day 1 status post debridement of left foot. Microbiology intraoperative specimen shows rare staph aureus. Dressings are removed from the left foot. Minimal bleeding noted on the dressing. She has good capillary return to all toes. Good neurological preservation to the left foot. The foot is warm to the touch. The surgical incision is well maintained. Calf is soft to palpation, no findings of DVT. Impression: 24 hours status post I&D left foot doing well Plan: She did receive PICC line today. Povidone iodine was applied to the incision line and web space followed by Xeroform, 4 x 4's, Kerlix rolls x2, flex net, 4 inch Rafa wrap. Anticipate 6 weeks of IV Rocephin 2 g daily which she is tolerating well. She appears to be doing well in terms of pain control. Verbally she states her pain is around a 6 to a 7 but she is smiling and relaxed while she says. I was able to examine the foot, manipulate the surgical wound and the forefoot with absolutely no visualization that she was having discomfort. If we can arrange IV antibiotic to be administered at home, I see no reason why we cannot discharge her home in the very near future. I will discussed the case with the hospitalist. Objective Last Vital Signs Temp 37.1 C 04/24/20 15:40 Pulse 68 04/24/20 15:40 Resp 16 04/24/20 15:40 BP 129/70 04/24/20 15:40 Pulse Ox 96 04/24/20 15:40
--- NOTE | 2020-04-24 19:37 | PDOC.CMPRO ---
- If Service Date Differs Date of service: 04/24/20 Time of Service: 19:37 Care Management Progress Note S/O: Erick was walking the halls today as CM passed. Per report, her blood cultures have been negative for 48 hrs, and an abx course of treatment has been identified. She received a PICC line today, with the anticipation of a 6 week abx course, once daily. CM reached out to [facility], who is agreeable to supporting Erick at home with her daily infusions. They stated that they would initially be able to go into her home to begin her home treatments, and they would teach her how to administer the abx going forward, so they would need to be sure that she would be able to maintain her treatment at home. CM sent orders to [facility], awaiting determination on her insurance coverage in order to continue discharge planning. CM will continue to follow. A: Erick is a 64 year old female admitted to [facility] on 04/22/20 with cellulitis. P: Anticipate Erick will return home with home IV abx and services to support her treatment at home. Orders have been sent to [facility], and Or/ ERIN has been updated on Erick's discharge plan. She will follow up with her PCP and discharge plan of care. CM will continue to follow.
[2020-04-24] MEDS: Simvastatin 20 MG TAB PO (20:01)
[2020-04-25] VITALS (7 sets, daily range): BP systolic 115–170; BP diastolic 69–94; PULSE 65–72; RESP 10–20; TEMP 35.9–36.6; O2SAT 95–99
[2020-04-25] MEDS: Levothyroxine 25 MCG TAB PO (06:06)
[2020-04-25] MEDS: Levothyroxine 88 MCG TAB PO (06:07)
[2020-04-25 07:08] LABS: Abs Immature Grans 0.01 10^3/uL (0.0-0.06); Absolute Basophil Count 0.05 10^3/uL (0.0-0.2); Absolute Eosinophil Count 0.34 10^3/uL (0.0-0.7); Absolute Lymphocyte Count 1.62 10^3/uL (1.2-3.4); Absolute Monocyte Count 0.62 10^3/uL (0.1-0.8); Absolute Neutrophil Count 3.48 10^3/uL (1.2-6.7); Basophils % 0.8; Eosinophils % 5.6; HCT 33.2 % (36.0-46.0); HGB 10.7 g/dL (11.2-15.7); Immature Grans % 0.2; Lymphocytes % 26.5; MCH 27.6 pg (27.0-33.0); MCHC 32.2 % (32.0-36.0); MCV 85.8 fL (80-95); MPV 11.3 fL (8.0-11.0); Monocytes % 10.1; Neutrophils % 56.8; Nucleated RBC 0 %; Platelet Count 357 10^3/uL (130-400); RBC 3.87 10^6/uL (3.93-5.22); RDW 13.9 % (11.7-14.6); RDW-SD 42.6 fL; WBC 6.12 10^3/uL (4.4-10.8)
[2020-04-25 07:41] LABS: Anion Gap 10.4 mmol/L (3-11); BUN 9 mg/dL (7-18); CO2 24.6 mmol/L (21.0-32.0); CREATININE 0.78 mg/dL (0.55-1.02); Chloride 104 mmol/L (98-107); Glucose 93 mg/dL (74-106); Potassium 3.3 mmol/L (3.5-5.1); Sodium 139 mmol/L (136-145)
[2020-04-25] MEDS: Citalopram 10 MG TAB PO (08:19)
[2020-04-25] MEDS: Omega-3 Fatty Acids 1000 MG CAP 3000 MG PO (08:19)
[2020-04-25] MEDS: Omeprazole 20 MG CAPCR 40 MG PO (08:19)
[2020-04-25] MEDS: amLODIPine 10 MG TAB PO (08:19)
[2020-04-25] MEDS: Pregabalin 100 MG CAP PO (08:20)
[2020-04-25] MEDS: Normal Saline Flush 10 ML SYR IVP ×4 (08:20→17:59)
[2020-04-25] MEDS: DULoxetine 30 MG CAP 60 MG PO ×2 (08:20→20:05)
[2020-04-25] MEDS: diazePAM 2 MG TAB PO ×2 (08:20→15:41)
[2020-04-25] MEDS: Ketorolac 15 MG/ML VIAL IVP ×2 (08:20→15:41)
[2020-04-25] MEDS: Potassium Chloride 20 MEQ TABCR PO ×3 (10:27→20:05)
--- NOTE | 2020-04-25 11:06 | W.NUTRFU ---
Date of service: 04/25/20 Time of Service: 11:06 Nutritional Follow up NOTE: 64 year old female admitted with celluliltis of foot with diarrhea and alcohol dependence, here for IV abx. BMI wnl for age. Following regular meal plan with excellent intake (>75%). Currently meeting nutrient and fluid needs, not at nutritional risk. Will continue to follow. Time Spent in Nutritional Counseling and Treatment: 0
[2020-04-25 12:04] LABS: Magnesium 1.7 mg/dL (1.8-2.4)
[2020-04-25] MEDS: cefTRIAXone 2 GM/50 ML BAG IVPB (14:32)
[2020-04-25] MEDS: Normal Saline 500 ML 30 ML IV (14:32)
[2020-04-25] MEDS: Acetaminophen 325 MG TAB 650 MG PO ×2 (15:41→20:05)
--- NOTE | 2020-04-25 16:48 | W.PM.PROGNOT ---
Date of Service Date of service: 04/25/20 Time of Service: 16:49 Assessment and Plan Assessment and plan (1) Hallux valgus (acquired), left foot: Status: Acute Assessment and plan: post op day [address] Osborn, keep clean and dry ceftriaxone 2 gm daily, will need 6 weeks IV, PICC in place, plan to discharge home tomorrow after am dose, case management working with home health services to set up home infusion blood cultures negative after 48 hours. (2) Abscess or cellulitis of foot: Status: Acute Assessment and plan: see above anticipate extended course of IV antibiotics. (3) Acute kidney injury: Status: Resolved Assessment and plan: resolved with IV hydration. resume lisinipril and hctz at discharge. repeat bmp tomorrow. (4) Hypertension: Status: Chronic Assessment and plan: blood pressures elevated, will continue to monitor blood pressure, lisinopril and HCTZ resumed, continue amlodipine and monitor. Qualifiers: Hypertension type: essential hypertension Qualified Code(s): I10 - Essential (primary) hypertension (5) Hyperlipemia: Status: Acute Assessment and plan: continue home medication Qualifiers: Hyperlipidemia type: unspecified Qualified Code(s): E78.5 - Hyperlipidemia, unspecified (6) Hypothyroidism: Status: Chronic Assessment and plan: check TSH, continue home levothyroxine dose Qualifiers: Hypothyroidism type: unspecified Qualified Code(s): E03.9 - Hypothyroidism, unspecified (7) GERD (gastroesophageal reflux disease): Status: Chronic Assessment and plan: continue omeprazole Qualifiers: Esophagitis presence: without esophagitis Qualified Code(s): K21.9 - Gastro-esophageal reflux disease without esophagitis (8) Hypomagnesemia: Status: Acute Assessment and plan: replete and follow (9) Alcohol dependence: Status: Acute Assessment and plan: no signs of withdrawal (10) Diarrhea: Status: Acute Assessment and plan: stool negative for cdiff, consider imodium if continues (11) DVT prophylaxis: Status: Acute Assessment and plan: on heparin at this time s/p bone biopsy (12) Discharge planning issues: Status: Acute Assessment and plan: case management following PICC line in place for outpatient exterminator helper termite antibiotics. discussed with Dr Gary. Subjective Subjective Patient reports: no new complaints, tolerating liquids well, tolerating a regular diet and afebrile Interval history since last seen: ambulating, wants to go home Exam Narrative Exam Narrative: Constitutional: Alert and oriented x3. Older than stated age. Normal body habitus. Head: Normocephalic,atraumatic. Eyes: EOM's intact. Eyelids symmetrical without lesions, discharge, or swelling. ENT:moist mucosa, no drainage from ears or nose. CV: RRR Resp: Lungs clear to auscultation bilaterally, respirations even and unlabored Musculoskeletal: wound not visualized, bulky surgical dressing intact. no erythema noted on visible skin Neurologic: Alert and oriented x 3. Hematologic/Lymphatic: No ecchymosis, no lymphadenopathy. Objective Last Vital Signs Temp 36.5 C 04/25/20 15:31 Pulse 65 04/25/20 15:31 Resp 16 04/25/20 15:31 BP 168/90 H 04/25/20 15:32 Pulse Ox 98 04/25/20 15:31 Laboratory Results - last 24 hr 04/25/20 04/25/20 04/25/20 06:00 06:00 06:00 WBC 6.12 RBC 3.87 L Hgb 10.7 L Hct 33.2 L MCV 85.8 MCH 27.6 MCHC 32.2 RDW 13.9 Plt Count 357 MPV 11.3 H Immature Gran % 0.2 Neutrophils % 56.8 Lymphocytes % 26.5 Monocytes % 10.1 Eosinophils % 5.6 Basophils % 0.8 Nucleated RBC % 0 Absolute Neutrophils 3.48 Absolute Lymphocytes 1.62 Absolute Monocytes 0.62 Absolute Eosinophils 0.34 Absolute Basophils 0.05 Sodium 139 Potassium 3.3 L Chloride 104 Carbon Dioxide 24.6 Anion Gap 10.4 BUN 9 D Creatinine 0.78 Estimated GFR/1.73 m2 >= 60.00 Glucose 93 Calcium 9.0 Magnesium 1.7 L
--- NOTE | 2020-04-25 17:32 | CMPROGNOTE_ITS ---
- If Service Date Differs Date of service: 04/25/20 Time of Service: 17:32 Care Management Progress Note S/O: Erick was sitting up in her chair when CM met with her. She reported that she was very anxious to return home, and was hoping to be able to go home today. SMILEY sent orders to [facility] for home IV infusions, but did not have an answer at the first visit. SMILEY called [facility] several times, sending them documentation when requested in order to coordinate Erick's discharge. She was approved w ith a copy of about $19/week, which she agreed to. [facility] was not able to deliver the supplies until tomorrow, 04/26/20, so Erick will remain at [facility] for her abx dose tomorrow morning, and then will be discharged home. [facility] will deliver supplies to her home on 04/26, and Swapnil/Pippa A will begin her home infusions on 04/27/20. SMILEY called and updated [facility], who was agreeable to beginning her service on Tuesday. She is happy to be returning home tomorrow. CM will continue to follow. A: Erick is a 64 year old female admitted to [facility] on 04/22/20 with cellulitis. P: Erick will have her abx dose in the morning on 04/26, and will return home with home IV abx through [facility] and HH services through [facility] to support her treatment at home, beginning on 04/27. Orders have been approved by [facility], and [facility] has been updated on Erick's discharge plan. SMILEY will fax the discharge summary to [facility] once she is discharged with a resumption of HH RN. She will follow up with her PCP and discharge plan of care. CM will continue to follow.
[2020-04-25] MEDS: MAGNESIUM SULFATE 1 GM/100 ML BAG IVPB (17:59)
[2020-04-25] MEDS: Simvastatin 20 MG TAB PO (20:05)
[2020-04-26 03:10] VITALS: BP 149/91; PULSE 65; RESP 10; TEMP 36.5; O2SAT 94
[2020-04-26] MEDS: Levothyroxine 88 MCG TAB PO (06:25)
[2020-04-26] MEDS: Levothyroxine 25 MCG TAB PO (06:25)
[2020-04-26 06:57] LABS: Anion Gap 8.8 mmol/L (3-11); BUN 10 mg/dL (7-18); CO2 26.2 mmol/L (21.0-32.0); CREATININE 0.82 mg/dL (0.55-1.02); Calcium 9.4 mg/dL (8.5-10.1); Chloride 104 mmol/L (98-107); Glucose 101 mg/dL (74-106); Magnesium 1.7 mg/dL (1.8-2.4); Sodium 139 mmol/L (136-145)
[2020-04-26 07:31] VITALS: BP 167/109; PULSE 64; RESP 18; TEMP 36.5; O2SAT 96
[2020-04-26] MEDS: Omega-3 Fatty Acids 1000 MG CAP 3000 MG PO (08:38)
[2020-04-26] MEDS: Omeprazole 20 MG CAPCR 40 MG PO (08:38)
[2020-04-26] MEDS: Magnesium Oxide 400 MG TAB 800 MG PO (08:38)
[2020-04-26] MEDS: amLODIPine 10 MG TAB PO (08:38)
[2020-04-26] MEDS: Pregabalin 100 MG CAP PO (08:39)
[2020-04-26] MEDS: Citalopram 10 MG TAB PO (08:39)
[2020-04-26] MEDS: Potassium Chloride 20 MEQ TABCR PO (08:39)
[2020-04-26] MEDS: DULoxetine 30 MG CAP 60 MG PO (08:39)
[2020-04-26 08:45] VITALS: BP 160/90
[2020-04-26] MEDS: cefTRIAXone 2 GM/50 ML BAG IVPB (09:44)
[2020-04-26] MEDS: Normal Saline Flush 10 ML SYR IVP ×2 (09:44→10:51)
--- NOTE | 2020-04-26 09:57 | W.PM.DS.N ---
Date of service: 04/26/20 Time of Service: 09:58 DS: Diagnosis Discharge Diagnosis (1) Hallux valgus (acquired), left foot: Start date: 04/26/20 Start time: 10:00 Status: Acute Asessment and Plan: Post op day 3, drsg change by nani Wick C/D. Ceftriaxone 2 gm daily x 6 weeks via PICC line, discharge home with services for infusion, weekly labs, blood cultures negative after 72 hours. (2) Abscess or cellulitis of foot: Start date: 04/26/20 Start time: 10:01 Status: Acute Asessment and Plan: As above following procedure from 02/2020 (3) Acute kidney injury: Start date: 04/26/20 Start time: 10:08 Status: Resolved Asessment and Plan: With IV hydration (4) Hypertension: Start date: 04/26/20 Start time: 10:08 Status: Chronic Asessment and Plan: blood pressures elevated, will continue to monitor blood pressure, lisinopril and HCTZ resumed, continue amlodipine and monitor. (5) Hyperlipemia: Start date: 04/26/20 Start time: 10:08 Status: Acute Asessment and Plan: continue home medication (6) Hypothyroidism: Start date: 04/26/20 Start time: 10:09 Status: Chronic Asessment and Plan: check TSH, continue home levothyroxine dose (7) GERD (gastroesophageal reflux disease): Start date: 04/26/20 Start time: 10:09 Status: Chronic Asessment and Plan: Continue omeprazole (8) Hypomagnesemia: Start date: 04/26/20 Start time: 10:09 Status: Resolved Asessment and Plan: repleted (9) Alcohol dependence: Start date: 04/26/20 Start time: 10:09 Status: Acute Asessment and Plan: no signs of withdrawal (10) Diarrhea: Start date: 04/26/20 Start time: 10:09 Status: Acute Asessment and Plan: Negative stool for cdiff. Improving Imodium as needed Above case discussed with Dr. Matta who is in agreement. Discharge Plan Disposition Patient Disposition: HOME W/HOME HEALTH SERVICE Condition: Improving Discharge Details Reason For Visit: CELLULITIS Admit Date/Time: 04/22/20 08:28 Admit Provider: Kyrie Gary Attending Provider: Kyrie Gary Primary Care Provider: Demetrio Vizcaino Hospital Course Hospital Course: 64 y.o female admitted from Dr. Farias office after being evaluated for follow from surgery and found to have cellulitis. PMH includes, HTN, HLD, GERD, Hypothyroidism, alcohol dependence, recent foot surgery on 03/07/2020. She was brought to the emergency room on 04/[address] Osborn for Incision and drainage with debridement fourth intermetatarsal space left foot with bone biopsies base proximal phalanx fifth digit and distal metatarsal shaft. Wound culture grew staph aureus, she was placed on 2 gm ceftriaxone daily. She was febrile on admission with elevated CRP. Blood cultures negative after 72 hours. While in the hospital she did require repletetion of mag and monitored levels. PICC line placed yesterday and she is being discharged home with services for [address] Osborn will be following her. Home Meds and New Rx's Prescriptions: New Bio-K plus 50 billion cell Capsule,Delayed Release(Dr/Ec) 1 cap PO DAILY Qty: 60 RF: 0 Continued citalopram 10 mg tablet 10 mg PO DAILY RF: 0 omeprazole 40 mg capsule,delayed release(DR/EC) 40 mg PO DAILY RF: 0 levothyroxine 25 mcg tablet 25 mcg PO DAILY RF: 0 levothyroxine 88 mcg tablet 88 mcg PO DAILY RF: 0 amlodipine 10 mg tablet 10 mg PO DAILY RF: 0 gemfibrozil 600 mg tablet 600 mg PO BID RF: 0 simvastatin 20 mg tablet 40 mg PO DAILY RF: 0 lisinopril 5 mg tablet 5 mg PO DAILY RF: 0 hydrochlorothiazide 25 mg tablet 25 mg PO DAILY RF: 0 albuterol sulfate 90 mcg/actuation HFA aerosol inhaler 2 puff INHALATION Q4H PRNRF: 0 cyclobenzaprine 5 mg tablet 5 mg PO TID PRN PRNRF: 0 duloxetine 60 mg capsule,delayed release(DR/EC) 60 mg PO BID RF: 0 omega 2-zec-hbe-fish oil 1,000 mg (120 mg-180 mg) Capsule 1 cap PO DAILY Qty: 30 RF: 0 pregabalin 200 mg capsule 200 mg PO BID Qty: 30 RF: 0 diazepam 2 mg tablet 2 mg PO TID PRN PRNRF: 0 ibuprofen 800 mg tablet 800 mg PO TID PRN PRNRF: 0 Discontinued sulfamethoxazole-trimethoprim 800-160 mg tablet 1 tab PO BID RF: 0 Discharge Instructions Instructions: Cellulitis (DC) Additional Instructions: Follow up with Dr. Osborn as scheduled Lab work weekly services Stand Alone Forms: Nursing Discharge Form Referrals: Demetrio Vizcaino [Primary Care Provider] - (Please call Tuesday to make a follow up appointment.) Activity:: Activity as Tolerated Equipment/Supplies:: No Equipment Needed Diet:: As Tolerated Discharge Orders Discharge Orders: Discharge Order (Routine); Ordered 04/26/20 Ordered By: Morena Rolle DS: Summary Status at Discharge Functional status at discharge: independent ambulation Overall status at discharge: patient is progressing back to baseline Mental Status: mental status grossly normal Speech and Movement: speech and movement normal Mood: congruent mood Affect: normal affect Exam Narrative Exam Narrative: Constitutional: Alert and oriented x3. Older than stated age. Normal body habitus. Head: Normocephalic,atraumatic. Eyes: EOM's intact. Eyelids symmetrical without lesions, discharge, or swelling. ENT:moist mucosa, no drainage from ears or nose. CV: RRR Resp: Lungs clear to auscultation bilaterally, respirations even and unlabored Musculoskeletal: wound not visualized, bulky surgical dressing intact. no erythema noted on visible skin Neurologic: Alert and oriented x 3. Hematologic/Lymphatic: No ecchymosis, no lymphadenopathy. Psych Mental Status: mental status grossly normal Speech and Movement: speech and movement normal Mood: congruent mood Affect: normal affect DS: Data Vitals/I&O Vitals and I&O: Vital Signs Temperature 36.5 C 04/26/20 07:31 Temperature Source Temporal Artery Scan 04/26/20 07:31 Pulse 64 04/26/20 07:31 Pulse Rhythm Regular 04/26/20 03:15 Respiratory Rate 18 04/26/20 07:31 Respiratory Effort Non-Labored 04/26/20 03:15 Respiratory Depth Normal 04/26/20 03:15 Respiratory Pattern Bradypnea 04/26/20 03:15 Blood Pressure 160/90 H 04/26/20 08:45 Blood Pressure Position Supine 04/22/20 08:05 Pulse Oximetry 96 04/26/20 07:31 Oxygen Delivery Method Room Air 04/26/20 07:31 Oxygen Flow Rate 0 04/26/20 07:31 Pain Level 0 04/26/20 07:31 Comment 04/26/20 08:45 Intake & Output 04/25/20 04/25/20 04/26/20 11:59 23:59 11:59 Intake Total 810 / 1535.5 725.5 / 1535.5 550 / 550 Balance 810 / 1535.5 725.5 / 1535.5 550 / 550 Intake: IV 20 / 325.5 305.5 / 325.5 Oral 790 / 1210 420 / 1210 550 / 550 Other: Urine Color Pale Yellow Urine Appearance Clear Clear Clear Urine Odor Normal Comment Per pt. report, void x1 in the toilet. Pt voided independently in toilet. She reports no urinary issues. Voiding Methods Toilet Toilet Data Completed and Pending Completed studies during hospitalization [Text1]: EXAM: CT LOWER EXTREMITY LT WO CLINICAL HISTORY: Left foot cellulitis TECHNIQUE: COMPARISON: No exams were available for comparison FINDINGS: CT examination of the foot was performed without contrast administration. The patient has multiple previous osteotomies including the heads of the 1st through 5th metatarsals and the bases proximal phalanges of 1st and 2nd toes. There is new bone formation noted at multiple sites associated with the osteotomies which may represent normal healing process versus osteomyelitis. There is question of erosion or bony destruction at the osteotomy sites at 1st MTP joint, the distal 2nd 3rd and 4th metatarsals, and the base the proximal phalanx the 5th toe. There is marked soft tissue swelling involving each of the osteotomy sites as well, no gas collection seen. IMPRESSION: Multiple prior osteotomies as described above, findings worrisome for osteomyelitis at multiple sites, please see above discussion. Labs on day of discharge: Labs from last 24 hours 04/26/20 04/25/20 06:20 06:00 Sodium 139 Potassium 4.0 D Chloride 104 Carbon Dioxide 26.2 Anion Gap 8.8 BUN 10 Creatinine 0.82 Estimated GFR/1.73 m2 >= 60.00 Glucose 101 Calcium 9.4 Magnesium 1.7 L 1.7 L Preliminary micro results at discharge 04/23/20 13:25 Anaerobic Culture - Preliminary Foot - Left 04/23/20 13:25 Surgical Culture - Preliminary Foot - Left Staphylococcus Aureus 04/22/20 09:03 Blood Culture - Preliminary Blood NO GROWTH 72 HOURS 04/22/20 08:47 Blood Culture - Preliminary Blood NO GROWTH 72 HOURS PFSH Medical History Abnormal gait Angioedema Pt. denies this Carpal tunnel syndrome Cervical spondylosis with radiculopathy Closed traumatic dislocation of metatarsal joint Complex regional pain syndrome Depressive disorder GERD (gastroesophageal reflux disease) Hyperlipemia Hypertension Hypokalemia Hypothyroidism Impetigo Tremor Surgical History H/O sinus surgery History of back surgery Hx of colonoscopy Social History Smoking/Tobacco Use Status: Never Smoking risk assessment performed?: Yes Alcohol Intake: current Alcohol Intake frequency: a few times a month Alcohol type: wine Drug use: Never Substance use type: does not use Do you feel safe at home: Yes Additional Social history: lives alone
--- NOTE | 2020-04-26 10:09 | PDOC.CMDIS ---
- If Service Date Differs Date of service: 04/26/20 Time of Service: 10:09 LACE Index Scoring Tool - Questions: Length of Stay (in days): 4 - 6 Acuity (Admit via E.D.?): Yes E.D. Visits: 0 - Answers: Total Score: 7 Risk of Readmission: Low Risk Care Management Discharge Reason for Hospitalization: Cellulitis Discharge Plan: Jeanne is being discharged home today with IV antibioitcs through [facility]. She is having a friend pick her up by private car. Discharge summary is being faxed to [facility] and [facility]. Resumption of home heatlh nursing and face to face have been completed. Jeanne feels ready for discharge and wants to return home. All services have been coordianted. She will follow up with her provider as directed. Services Needed at Discharge: DME Agency, Home Health Care Services, Infusion Therapy, Transportation
--- NOTE | 2020-04-26 10:21 | PDOC.HHF2F_ITS ---
Home Health Certification Home Health Certification: 1. Encounter Date and Reason I certify that WILMER TRIPLETT was seen by Morena Rolle on 04/26/20 and that I had a [id number] encounter with this patient that meets the physician face to face encounter requirements. 2. Clinical Findings Supporting Skilled Need and Homebound Status I certify that home health services are medically necessary, include either intermittent correction and/or physical/speech therapy, and that this pat ient is homebound in that absences from the home require considerable and taxing effort and are infrequent or of short duration, or are attributable to the need to receive medical care. [X] (a) Attached documentation from encounter provides clinical findings supporting skilled need and homebound status (including what assistance patient requires to leave the home). The encounter with the patient was in whole, or in part, for the following medical condition, which is the primary reason for home health care: CELLULITIS Fci: Patient would benefit from nursing services for lab draws, medication administration and PICC line care per protocol.. Homebound: Unable to leave home without assistance 3. Certification and Authentication I certify that I composed the above information based on my clinical judgement relating to this patient's medical condition and, if applicable, clinical findings communicated to me by the NPP or inpatient physician who performed the Home Health Referral. All further orders will be obtained through Demetrio Vizcaino Community Based Physician - PCP)
== END 2020-04-26 11:21 | disposition home health service (06) | DRG 571 ==
LOC: ER 08:20 → MS 10:08
PROVIDERS: Nurse Practitioner Acute Care; Podiatrist; Admitting Provider Internal Medicine; Emergency Provider Registered Nurse Emergency; PCP Internal Medicine; Visit Provider Internal Medicine
PROC: 0JBR0ZZ Excision of Left Foot Subcutaneous Tissue and Fascia, Open Approach (ICD-10-PCS; CPT 28104; principal; 2020-04-23 13:00)
DX: L03.116 Cellulitis of left lower limb (principal); N17.9 Acute kidney failure, unspecified; I10 Essential (primary) hypertension; E78.5 Hyperlipidemia, unspecified; E03.9 Hypothyroidism, unspecified; E83.42 Hypomagnesemia; K21.9 Gastro-esophageal reflux disease without esophagitis; F10.20 Alcohol dependence, uncomplicated; R19.7 Diarrhea, unspecified; B95.61 Methicillin susceptible Staphylococcus aureus infection as the cause of diseases classified elsewhere; Z96.82 Presence of neurostimulator
CPT/HCPCS: 28104; 28108; 11043; 36415; 36573; 80048; 80053; 87040; 87077; 87081; 87493; 96361; 96365; 99223; 99233; 99239; 99285; U0003; 73700; 83605; 83735; 85025; 86140; 87070; 87075; 87205; 88304; 88311; J0131; J1580; J1644; J1885; J2001; J2250; J2704; J3010; J3475

== ENCOUNTER 2020-05-15 11:14 | Outpatient (CLI) | payer MEDICARE, SELFPAY ==
[2020-05-17 13:57] LABS: COVID-19 RT-PCR UVMMC Result Negative (Negative)
== END 2020-05-15 11:34 ==
PROVIDERS: Orthopaedic Surgery Orthopaedic Trauma; PCP Internal Medicine; Visit Provider Internal Medicine
DX: Z11.59 Encounter for screening for other viral diseases (principal); Z01.818 Encounter for other preprocedural examination
CPT/HCPCS: U0003